=== PATIENT | male | born 1950 | race Caucasian/White ===

== ENCOUNTER → 2017-06-27 | Outpatient (REF) | payer MEDICARE, OTHER ==
[~2017-06-27] MED LIST: /ESCI20TA OR; BUPR15TA OR; BYETTA SC; EYEDRO OU; GABA800T3 OR; GEMF600T OR; HUMUINJ SC; HYDROCODONE/APAP PO; INSULANT SC; LIPI80TA OR; NITR0.4S SL; OMEP20TA7 OR; PLAV75TA2 OR; TOPR100T OR; VICODINES TAB OR; VITAMIN D2 PO; VITAMIN D50000 UNT OR
[2017-06-27 14:10] LABS: PERCENT SATURATION 8.2 % (19.7-50.0)
[2017-06-27 19:46] LABS: FOLATE 8.4 NG/ML (>5.4)
== END ==
LOC: M LAB REF 12:52
PROVIDERS: ATTEND Internal Medicine Nephrology
DX: N18.3 Chronic kidney disease, stage 3 (moderate) (principal); I12.9 Hypertensive chronic kidney disease with stage 1 through stage 4 chronic kidney disease, or unspecified chronic kidney disease; D50.9 Iron deficiency anemia, unspecified

== ENCOUNTER 2017-07-17 08:33 | Outpatient (CLI) | payer MEDICARE, BC, OTHER ==
[~2017-07-17] VITALS: Ht 170.2 cm; Wt 115.9 kg
[2017-07-17] MEDS ORDERED: IRON SUCROSE 25 MG in NS 50 ML IV ONE (09:00)
[2017-07-17] MEDS ORDERED: IRON SUCROSE 475 MG in NS 250 ML IV ONE (10:00)
== END 2017-07-17 14:30 | disposition home or self-care (01) ==
LOC: M INFU 08:33
PROVIDERS: ATTEND Internal Medicine Nephrology
DX: D50.9 Iron deficiency anemia, unspecified (principal)
CPT/HCPCS: 96365; 96366; J1756

== ENCOUNTER → 2017-08-08 | Outpatient (REF) | payer MEDICARE, BC, OTHER ==
[~2017-08-08] MED LIST changes: -/ESCI20TA OR; +/ESCI20TA PO; +ATOR40TA75 PO; +CALC1CAP31 PO; +CHLO125TA; +CHLO25TA PO; +FAMO1TAB11 PO; +FENO1TAB41 PO; +FERR1TAB8 PO; +FLOM5CAP PO; +GABA-282 PO; -GABA800T3 OR; +GABA800T3 PO; +HYDR-3716 PO; -PLAV75TA2 OR; +PLAV75TA2 PO; +PREG100CA PO; +TIMO0.5S29 OU; +TIMOXEOPD OU; +TRAV04OPD OU; +VICT18IN SC; -VITAMIN D50000 UNT OR; +VITAMIN D50000 UNT PO
== END ==
LOC: M LAB REF 08:04
PROVIDERS: ATTEND Internal Medicine Nephrology
DX: E11.22 Type 2 diabetes mellitus with diabetic chronic kidney disease (principal); N18.3 Chronic kidney disease, stage 3 (moderate)

== ENCOUNTER 2017-10-06 09:56 | Inpatient (IN) | payer MEDICARE, BC, OTHER ==
[~2017-10-06] VITALS: Ht 170.2 cm; Wt 121.5 kg
[~2017-10-06 09:56] MED LIST changes: -ATOR40TA75 PO; -CALC1CAP31 PO; -CHLO125TA; -CHLO25TA PO; -FAMO1TAB11 PO; -FENO1TAB41 PO; -FERR1TAB8 PO; -FLOM5CAP PO; -GABA-282 PO; -HYDR-3716 PO; -PREG100CA PO; -TIMO0.5S29 OU; -TIMOXEOPD OU; -TRAV04OPD OU; -VICT18IN SC
[2017-10-06] MEDS ORDERED: FENO1TAB41 PO (10:20)
[2017-10-06] MEDS ORDERED: FLOM5CAP PO (10:20)
[2017-10-06] MEDS ORDERED: PREG100CA PO (10:20)
[2017-10-06] MEDS ORDERED: HYDR-3716 PO (10:20)
[2017-10-06] MEDS ORDERED: CHLO125TA (10:20)
[2017-10-06] MEDS ORDERED: VICT18IN SC (10:20)
[2017-10-06] MEDS ORDERED: FAMO1TAB11 PO (10:20)
[2017-10-06] MEDS ORDERED: FERR1TAB8 PO (10:20)
[2017-10-06] MEDS ORDERED: NS 1,000 ML IV SCH (10:41)
[2017-10-06] MEDS ORDERED: MORPHINE 2 MG/ML 1ML SYRINGE IV PRN (10:45)
[2017-10-06] MEDS ORDERED: ONDANSETRON 4MG/2ML VIAL (J2405) IV ONE (10:45)
[2017-10-06 11:09] LABS: BASO % 0.3 % (0.0-1.0); EOS # 0.2 10^3/uL (0.0-0.50); EOS % 2.5 % (0.0-3.0); IMMATURE GRANULOCYTE % 0.4 % (0-0); LYMPH % 22.3 % (24.0-44.0); MEAN CORPUSCULAR HEMOGLOBIN 26.4 pg (27.0-33.0); MEAN CORPUSCULAR HGB CONC 32.2 g/dl (32.0-36.5); MONO # 0.9 10^3/uL (0.0-0.8); MONO % 10.2 % (0.0-5.0); NEUTROPHILS # 5.7 10^3/uL (1.8-7.7); NEUTROPHILS % 64.3 % (36.0-66.0); PLATELET COUNT, AUTOMATED 221 10^3/uL (150-450); WHITE BLOOD COUNT 8.9 10^3/uL (4.0-10.0)
[2017-10-06 11:27] LABS: INR 0.96
[2017-10-06 11:33] LABS: ALBUMIN 3.7 GM/DL (3.2-5.2); ALBUMIN/GLOBULIN RATIO 0.86 (1.00-1.93); BILIRUBIN,DIRECT 0.2 MG/DL (0.0-0.2); BILIRUBIN,TOTAL 0.6 MG/DL (0.2-1.0); CALCIUM LEVEL 8.9 MG/DL (8.8-10.2); GLOMERULAR FILTRATION RATE 22.4 (>49); POTASSIUM SERUM 4.4 MEQ/L (3.5-5.1)
--- NOTE | 2017-10-06 12:04 | REP ---
CT ABDOMEN PELVIS WITHOUT CONTRAST: 10/06/2017. CLINICAL HISTORY: Left flank pain. TECHNIQUE: Our renal stone protocol was utilized with coronal and sagittal reconstructions. FINDINGS: CT ABDOMEN: Lung bases were clear. Heart is mildly prominent. There are calcifications in the mitral annulus and some coronary artery calcifications. No pericardial thickening or effusion. No hiatal hernia. Gastric stapling is evident. There is no splenomegaly or focal splenic lesion. Elevated right diaphragm is again seen with eventration. No hepatomegaly or focal hepatic lesion. No biliary dilatation. Gallbladder shows a small dependent stone with calcification, almost 5 mm. Pancreas without ductal dilatation, stone, inflammatory change, or mass. Adrenal glands are normal. Right kidney shows no stone, mass, or cyst. There is no hydronephrosis or hydroureter and no ureteral stone. Mild perinephric stranding. The left kidney shows a 4 mm stone, lower pole. There is mild hydronephrosis and hydroureter. There are multiple stones in the left ureter in its abdominal portion. On the coronal images, I see at least four different stones best viewed on image 54 and ranging from 4-6 mm. Below this, the ureter is of normal caliber with no other stones in the mid to distal ureter. No stones in the bladder. A left lower pole kidney cyst noted, exophytic, minor stranding in the fat around both kidneys. Aortic calcified, gomez without aneurysm. No periaortic other retroperitoneal lymphadenopathy. Small bowel loops and colon in the abdomen proper grossly intact. Lung window review shows no perforation or free air in the abdomen or pelvis on any CT slice. Bone windows show lumbar spine with fusion at L3-4 and L4-5 with pedicle screws and arch bars and solid disc fusion, normal lordosis. Remainder of the visualized spine grossly intact, ribs intact. CT PELVIS: Sacrum, pelvis, hips, and symphysis pubis with some mild degenerative changes and a few bone islands, otherwise negative. Bladder was minimal filling, wall thickness difficult to justice court judge, no stone or mass. Seminal vesicles symmetric. Prostate with a few calcifications, not grossly enlarged. Left colon and sigmoid without colitis or diverticulitis, despite diverticulosis. No ventral or inguinal hernia. Some abdominal wall surgical clips on the left over the rectus. IMPRESSION: 1. Hydronephrosis and hydroureter on the left with a series of four stones in the left ureter ranging from 4-6 mm. One stone remains in the left kidney about 4 mm. The left kidney otherwise unremarkable, except for a small lower pole cyst. The right kidney without stone, mass, or hydronephrosis. No other acute finding. Signed by Owen Cobian MD 10/06/2017 05:32 P
[2017-10-06] MEDS ORDERED: cefTRIAXone SOD 1 GM in D5W 50 ML IV ONE (12:30)
[2017-10-06] MEDS ORDERED: TAMSULOSIN 0.4 MG CAP PO ONE (12:30)
[2017-10-06] MEDS ORDERED: ATOR40TA75 PO (13:31)
[2017-10-06] MEDS ORDERED: TRAV04OPD OU (13:31)
[2017-10-06] MEDS ORDERED: TIMOXEOPD OU (13:31)
[2017-10-06] MEDS ORDERED: CALC1CAP31 PO (13:31)
[2017-10-06] MEDS ORDERED: CHLO25TA PO (13:31)
[2017-10-06] MEDS ORDERED: TIMO0.5S29 OU (13:32)
[2017-10-06] MEDS ORDERED: ACETAMINOPHEN TAB 650MG DOSE (2X325MG) PO PRN (14:30)
[2017-10-06] MEDS ORDERED: ONDANSETRON 4MG/2ML VIAL (J2405) IV PRN ×2 (14:30→19:30)
--- NOTE | 2017-10-06 14:42 | REP ---
Chest two views HISTORY: Preop Comparison: 05/07/2016 There is elevation of the right hemidiaphragm. The lungs are clear. The heart is normal in size. The pulmonary vasculature is normal in appearance. The bony structure is intact. IMPRESSION: No acute disease. Signed by Ady Ríos MD 10/06/2017 02:34 P
[2017-10-06 15:45] VITALS: BP 148/82
--- NOTE | 2017-10-06 16:02 | REP ---
RIGHT UPPER QUADRANT ULTRASOUND: 10/06/2017. Comparison: CT abdomen today, gallbladder ultrasound 10/05/2015. Clinical history: Pancreatitis. CT today did not show any significant inflammatory changes. There is no stone, pseudocyst, adenopathy or mass about the pancreas. There was a as a small calcified gallstone about [address] Findings: Sonographic evaluation shows homogeneous echotexture throughout the liver without focal hepatic mass or intrahepatic biliary dilatation. Gallbladder does not definitely display of the plaque-like echogenic focus seen on CT. May be partially obscured by gas shadowing. The gallbladder wall is normal thickness of 2.4 mm . Distension is adequate up to 9.6 cm with AP diameter 3.3 cm. No pericholecystic fluid. No sonographic Hoffman sign. Common duct 5.9 mm without a filling defect. Visualized pancreas shows no definite mass or stone. There are no fluid collections adjacent to the pancreas or within it. No ductal dilatation in the pancreas. The right kidney is 12.1 x 5.7 x 5.3 cm without hydronephrosis or stone. Impression: 1. Liver homogeneous without focal hepatic mass or hepatomegaly. 2. No ascites. The gallbladder up to 9.6 x 3.3 cm diameter. The hyperdense plaque - like focus on the gallbladder wall suggesting possible calcified stone on the CT is not visible by ultrasound. 3. Common duct 5.9 mm without a filling defect. No dilatation. The limited view of the pancreas shows the pancreatic head unremarkable. 4. Right kidney without hydronephrosis, stone or mass. Signed by Owen Cobian MD 10/06/2017 05:51 P
[2017-10-06] MEDS ORDERED: GLUCAGON FOR INJ 1 MG VIAL (J1610) SC PRN (16:45)
[2017-10-06] MEDS ORDERED: DEXTROSE 50% 50 ML SYRINGE IV PRN (16:45)
[2017-10-06] MEDS ORDERED: GLUCOSE 4 GM CHEW TABLET PO PRN (16:45)
[2017-10-06] MEDS ORDERED: CONRAY-60 60% 50ML VIAL (Q9961) As Ordered ONE (16:46)
[2017-10-06] MEDS ORDERED: LIDOCAINE 2% 5ML JELLY UROJET As Ordered ONE (16:48)
[2017-10-06] MEDS ORDERED: LIDOCAINE 2% MDV 20 ML VIAL As Ordered ONE (16:48)
[2017-10-06] MEDS ORDERED: ceFAZolin 1GM INJ (J0690) As Ordered ONE (17:01)
[2017-10-06] MEDS ORDERED: ceFAZolin 1GM INJ (J0690) IV ONE (17:09)
--- NOTE | 2017-10-06 17:18 | HPE ---
DATE OF ADMISSION: 10/06/2017 PRIMARY CARE PROVIDER: Lorenzo Brown MD PLASMA CUTTING MACHINE OPERATOR: Lucero Pickens MD DATA ENTRY ANALYST: Nima Gomez MD PHOTOENGRAVING PROOFER APPRENTICE: Akash Brewer MD UROLOGIST: Dr. Wright in [place], [place] CHIEF COMPLAINT: Pain in my gut. SUMMARY OF PRESENTATION: The patient developed pain in his left flank October 01, . It radiates from the left flank right under his ribcage to around the front. Somewhat worse when he is lying on his right side. He has not had any dysuria, but he had chills last evening. He has had nausea without vomiting. No diarrhea. He has not been eating and drinking much, but he does not associate this with food. He did think he was constipated. He used suppositories with no impact. He has had no change in his urinary output, although he has had a 16 pounds weight gain in [address] Pickens's office to be seen today and was sent to the emergency department as his creatinine has increased from his baseline around 1.6 to now 3. He had a scan done which showed obstructing stone on the left and urology was consulted and I was called for admission. PAST SURGICAL HISTORY: Notable for: Low back laminectomy and fusion. Discectomy in the cervical spine. He had a Melanie-en-Y bypass in 2012. At that time also he had a ureteral stent placed. He was septic with stones apparently. That was done in [place] in [place]. He has a history of a myocardial infarction, coronary artery disease, status post PCI times three with 8 stents. He did have a stress test this year that we do not have access to. PAST MEDICAL HISTORY: Diabetes. Obstructive sleep apnea, on CPAP for which he is compliant. Hypertension. History of coronary artery disease. 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 Status post back surgery previously completed. SOCIAL HISTORY: He quit smoking in 1998 or 1999. He does not drink any alcohol in recent memory. He lives in [facility]. He has a corvette. He likes working on cars. FAMILY HISTORY: Not pertinent in this setting. REVIEW OF SYSTEMS: Notable for chills with no fever. No headache. No visual changes. No runny nose, no sore throat, no cough. No shortness of breath. He does not complain of orthopnea or paroxysmal nocturnal dyspnea. He does intermittently suffer from lower extremity edema which is worse at night. Otherwise, is unremarkable. ALLERGIES: LOSARTAN. MEDICATIONS AT HOME: Include: - [place] - atorvastatin - calcitriol - chlorthalidone - Plavix - famotidine - ferrous sulfate - sublingual nitroglycerin which he has not used recently - Lyrica - Flomax - timolol - Travatan Z - Lexapro - fenofibrate - Neurontin - insulin - Victoza - vitamin D PHYSICAL EXAMINATION: Temperature is 97.4, pulse 55, respiratory rate 16, blood pressure 184/86, 97% on room air. Intake and output (I and Os) not in the computer at this point. Body mass index was 40.8. He is awake, appropriately interactive. Pleasantly conversant. Head is normocephalic. Pupils equal, round and reactive. Anicteric. Noninjected. Nasal septum is midline. He has poor dentition. Mucous membranes moist. Neck is supple. Thick. Short. Breathing is symmetrical, rested. I to E ratio is 1 to 3. No wheezes, rales or rhonchi. No accessory muscle use. Speaking in complete sentences. There is no costovertebral angle (CVA) tenderness. There is no sacral edema. Abdomen is soft, doughy, nontender. There is left upper quadrant tenderness quite laterally. No rebound or guarding. Active bowel sounds. There is no lower extremity edema. Feet are exposed. There are some excoriations on his feet. There is a healing, but is improving apparently on his left 5th toe. Cranial nerves II-XII are grossly intact. He has normal mood and affect. He does have left-sided foot drop. White cell count is 8.9, hemoglobin is 13.8, platelets are 221. BUN 25, creatinine 3. Sodium is 135. Lactic acid is 0.5, alkaline phosphatase 128, lipase is 1128. Baseline creatinine appears to be between 1.3 and 1.5. UA is notable for too numerous to count red cells. 26 whites. 1+ glucose. 3+ blood. Urine culture is pending. Abdominal and pelvis CT shows hydronephrosis and hydroureter on the left side with a series of four stones in the left ureter ranging from 4 to 6 mm. One stone remains in the left kidney, about 4 mm. The left kidney otherwise unremarkable except for small lower pole cyst. Right kidney without stone, mass or hydronephrosis. No other acute finding. Chest x-ray is pending. EKG shows sinus bradycardia with a rate of 56. ASSESSMENT: This is a 67-year-old with acute renal failure in the setting of left-sided hydronephrosis and obstructing stone. The patient required 2 midnight hospital stay and surgical correction. PLAN: 1. Genitourinary (): The patient has hydronephrosis on the left with obstructing stones. Dr. Pham will be consulted. Likely the patient will require stent placement, which I will defer to her management. Will also consult Dr. Pickens who sent the patient to the hospital for evaluation. The patient has acute renal failure and is started on IV fluid and empiric antibiotics. 2. The patient has morbid obesity which complicates care. 3. The patient has coronary artery disease. Has had a recent stress test. I have asked for old records from Dr. Gomez's office. He has relatively poor exercise tolerance. He does not describe angina or equivalent but he does not need relatively urgent intervention and this represents a relatively low risk procedure. Withhold Plavix. 4. The patient has obstructive sleep apnea. Will be placed in the PCU for close monitoring perioperatively. His home CPAP device will be brought in. 5. The patient has diabetes. He will be placed on a sliding scale. 6. The patient has diabetic neuropathy. Continue his Neurontin and Lyrica. He appears to be on both. 7. This patient will be signed out to Dr. Yeh.
[2017-10-06] MEDS ORDERED: MIDAZOLAM INJ 2 MG/2 ML VIAL (J2250) As Ordered ONE (17:28)
[2017-10-06] MEDS ORDERED: fentaNYL 100 MCG/2 ML INJECTION (J3010) As Ordered ONE ×2 (17:28→17:39)
[2017-10-06] MEDS ORDERED: ePHEDrine SULFATE 25 MG/5 ML(5MG/ML) SYRINGE As Ordered ONE ×2 (17:28→17:43)
[2017-10-06] MEDS ORDERED: SUCCINYLCHOLINE 100 MG/5 ML SYRINGE (J0330) As Ordered ONE (17:28)
[2017-10-06] MEDS ORDERED: ROCURONIUM BROMIDE 50 MG/5 ML VIAL/SYRINGE As Ordered ONE (17:28)
[2017-10-06] MEDS ORDERED: ETOMIDATE INJ 20MG/10ML VIAL As Ordered ONE (17:29)
[2017-10-06] MEDS ORDERED: PROPOFOL 200 MG/20 ML VIAL As Ordered ONE (17:29)
[2017-10-06] MEDS ORDERED: LIDOCAINE 2% INJ 100 MG/5 ML SDV (FOR ANES.) As Ordered ONE (17:29)
[2017-10-06] MEDS ORDERED: ONDANSETRON 4MG/2ML VIAL (J2405) As Ordered ONE (17:38)
[2017-10-06] MEDS ORDERED: METOCLOPRAMIDE INJ 10MG/2ML VIAL (J2765) As Ordered ONE (17:38)
[2017-10-06] MEDS ORDERED: HumaLOG INSULIN (NovoLOG) PER UNIT SC SCH ×2 (18:00→21:00)
[2017-10-06] MEDS: NS 1,000 ML IV SCH (18:00)
[2017-10-06] MEDS ORDERED: GLYCOPYRROLATE INJ 0.2 MG/ML 2 ML VIAL As Ordered ONE (18:21)
--- NOTE | 2017-10-06 18:59 | REP ---
RETROGRADE PYELOGRAM, TWO VIEWS: HISTORY: Stent placement. Two portable radiographs were obtained with a C-ARM. The patient is status-post left ureteral stent placement. A small amount of contrast material is present in the left renal collecting system and ureter. Fluoroscopic time: 7 seconds. IMPRESSION:The patient is status-post left ureteral stent placement. Signed by Ady Ríos MD 10/06/2017 07:11 P
[2017-10-06] MEDS ORDERED: PERCOCET 5MG/325MG TAB PO PRN (19:30)
[2017-10-06] MEDS ORDERED: fentaNYL 100 MCG/2 ML INJECTION (J3010) IV PRN (19:30)
[2017-10-06] MEDS ORDERED: METOCLOPRAMIDE INJ 10MG/2ML VIAL (J2765) IV PRN (19:30)
[2017-10-06] MEDS ORDERED: LR 1,000 ML IV SCH (19:30)
[2017-10-06 20:00] VITALS: BP 170/70
[2017-10-06] MEDS: TAMSULOSIN 0.4 MG CAP PO SCH (20:26)
[2017-10-06] MEDS: LATANOPROST 0.005% OPHTH SOLN 2.5 ML OU SCH (20:26)
[2017-10-06] MEDS: GABAPENTIN 400 MG CAP PO SCH (20:26)
[2017-10-06] MEDS: PREGABALIN 100 MG CAP (LYRICA) PO SCH (20:27)
[2017-10-06] MEDS: FAMOTIDINE 20 MG TAB PO SCH (20:27)
[2017-10-06 20:30] VITALS: BP 160/80
[2017-10-06] MEDS: MORPHINE 2 MG/ML 1ML SYRINGE IV PRN (20:43)
[2017-10-06 21:00] VITALS: BP 158/78
[2017-10-06 23:59] VITALS: BP 142/76
[2017-10-07] MEDS ORDERED: cefTRIAXone SOD 1 GM in D5W 50 ML IV SCH (00:30)
[2017-10-07 04:45] VITALS: BP 132/59
[2017-10-07] MEDS: HumaLOG INSULIN (NovoLOG) PER UNIT SC SCH ×3 (06:00→17:25)
--- NOTE | 2017-10-07 07:15 | ECGEPIP ---
Stationary ECG Study [facility] - ED Test Date: 2017-10-06 Pat Name: GARRICK MCRAE Department: Room: - Gender: M Celluloid Trimmer: ALLIE : 1950 Requested By: LUCÍA WALLS Order Number: [id number] Reading MD: Parker العلي Measurements Intervals [place] Rate: 56 P: 30 MA: 138 QRS: 49 QRSD: 88 T: 29 QT: 418 QTc: 405 Interpretive Statements SINUS BRADYCARDIA SIMILAR TO 05/07/16 Electronically Signed On 10-07-2017 7:15:06 EST by Parker العلي
[2017-10-07] MEDS ORDERED: HumaLOG INSULIN (NovoLOG) PER UNIT SC SCH ×2 (07:30→21:00)
[2017-10-07 08:00] VITALS: BP 118/61
[2017-10-07 08:30] LABS: MEAN CORPUSCULAR HGB CONC 31.5 g/dl (32.0-36.5); MEAN CORPUSCULAR VOLUME 82.6 fl (80.0-96.0); PLATELET COUNT, AUTOMATED 206 10^3/uL (150-450); WHITE BLOOD COUNT 7.1 10^3/uL (4.0-10.0)
[2017-10-07 08:58] LABS: MAGNESIUM LEVEL 1.8 MG/DL (1.8-2.4)
[2017-10-07] MEDS: ESCITALOPRAM OXALATE 10 MG TAB (LEXAPRO) PO SCH (09:36)
[2017-10-07] MEDS: ATORVASTATIN 20 MG TAB PO SCH (09:36)
[2017-10-07] MEDS: FAMOTIDINE 20 MG TAB PO SCH ×2 (09:36→20:31)
[2017-10-07] MEDS: NS 1,000 ML IV SCH ×2 (09:36→18:37)
[2017-10-07] MEDS: GABAPENTIN 400 MG CAP PO SCH (09:36)
[2017-10-07] MEDS: PREGABALIN 100 MG CAP (LYRICA) PO SCH ×2 (09:36→20:30)
[2017-10-07] MEDS: LATANOPROST 0.005% OPHTH SOLN 2.5 ML OU SCH (09:37)
[2017-10-07] MEDS: MORPHINE 2 MG/ML 1ML SYRINGE IV PRN ×2 (09:38→17:26)
[2017-10-07] MEDS: FERROUS SULFATE 325MG TAB PO SCH (09:40)
[2017-10-07] MEDS: TIMOLOL MALEATE 0.5% OPHTH SOLN 5 ML OU SCH (09:40)
[2017-10-07 11:54] LABS: ALBUMIN 3.1 GM/DL (3.2-5.2); ALBUMIN/GLOBULIN RATIO 0.94 (1.00-1.93); BILIRUBIN,TOTAL 0.4 MG/DL (0.2-1.0); CREATININE FOR GFR 2.85 MG/DL (0.70-1.30); GLOMERULAR FILTRATION RATE 23.8 (>49); POTASSIUM SERUM 4.8 MEQ/L (3.5-5.1); TOTAL PROTEIN 6.4 GM/DL (6.4-8.2)
[2017-10-07 12:00] VITALS: BP 134/60
[2017-10-07] MEDS: cefTRIAXone SOD 1 GM in D5W 50 ML IV SCH (13:29)
[2017-10-07] MEDS ORDERED: TETANUS/DIPHTHERIA TOX ADSORB ADULT 0.5ML SYR/VIAL (90714) IM ONE (14:15)
--- NOTE | 2017-10-07 15:05 | IPN ---
DATE: 10/07/2017 SUBJECTIVE: The patient is seen and examined in the room today. The patient was brought to the operating room (OR) by urology, Dr. Pham, for stone removal. The patient tolerated the procedure well. The patient denies any acute complaints. OBJECTIVE: VITAL SIGNS: Temperature is 98, pulse 71, respirations 17, blood pressure 118/61. Pulse oximetry is 92% on room air. GENERAL: Morbidly obese. In mild distress secondary to soreness in the suprapubic region and the left lateral abdomen. Alert and oriented times three. HEENT: Normocephalic, atraumatic. Extraocular motor grossly intact. CARDIOVASCULAR: Positive S1, S2. Regular rate. LUNGS: Decreased breath sounds but clear to auscultation bilaterally. ABDOMEN: There is some tenderness to palpation in the suprapubic region with radiation to the left lateral abdomen, achy type of pain. Bowel sounds present. No rebound. EXTREMITIES: No edema, no cyanosis. LABORATORY DATA: WBC is 7.1, hemoglobin 12.1, hematocrit 38.4, platelet count 206. Sodium 138, potassium 4.8, chloride 105, carbon dioxide 26, BUN 25, creatinine 2.85, GFR 23.8. Fasting glucose is 226. Calcium is eight. Magnesium 1.8, total bilirubin 0.4, AST 19, ALT 23, alkaline phosphatase 106. Total protein is 6.4, albumin 3.1, lipase 108. ASSESSMENT AND PLAN: 1. Left hydronephrosis from obstructing stone. The patient was brought to the OR for stone removal by Dr. Pham yesterday. The patient tolerated the procedure well. Currently the patient is on empiric antibiotics (Rocephin). 2. Acute on chronic renal failure possibly due to stone obstruction. The patient had a stone removal procedure performed and will followup with renal function. Currently the patient is not on intravenous (IV) fluid. 3. Diabetes. The patient will be on consistent carbohydrate diet and sliding scale. 4. Obstructive sleep apnea (EDDY) on continuous positive airway pressure (CPAP). 5. Hypertension. Currently blood pressure is in the satisfactory range. 6. History of coronary artery disease. Continue Lipitor. 7. Plavix has been on hold in preparation for the procedure. 8. History of diabetic neuropathy, on gabapentin. 9. History of puncture wound from nail. Will give the patient a tetanus shot. 10. DVT prophylaxis on thromboembolism deterrent stockings (TEDs) and sequential compression devices.
--- NOTE | 2017-10-07 15:31 | CR ---
DATE OF CONSULTATION: 10/06/2017 REASON FOR CONSULTATION: Left ureteral calculi. HISTORY OF PRESENT ILLNESS: The patient is a 67-year-old gentleman with a several-day history of left flank pain radiating to the groin. 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 He was sent to the emergency room and a urologic consultation was requested. The patient has had some gross hematuria, nausea and chills. He has a history of kidney stones in the past and [place] last stent was in 2012, and he has passed several stones. He also has a history of benign prostatic hypertrophy (BPH) and is on two tamsulosin nightly, but still has urinary frequency and nocturia every two hours. He has a normal stream and normally feels like he empties his bladder completely. He denies any burning with urination or any problems with recurrent urinary tract infections. PAST MEDICAL HISTORY: Is significant for coronary artery disease, high blood pressure, BPH, chronic back pain and neurologic pain with a dropped leg, chronic kidney disease, also diabetes, morbid obesity, sleep apnea and venous insufficiency. PAST SURGICAL HISTORY: Multiple back surgeries, coronary artery stent placement times eight, urologic surgery with stent placement. MEDICATIONS: Gabapentin, vitamin D, fenofibrate, Flomax, Lyrica, Victoza, ferrous sulfate, hydrocodone, famotidine, atorvastatin, chlorthalidone, calcitriol, Travatan, and timolol eye drops. ALLERGIES: LOSARTAN caused skin peeling on his hands, and METFORMIN. FAMILY HISTORY: Noncontributory. SOCIAL HISTORY: He is a former smoker. He is . REVIEW OF SYSTEMS: The full emergency room (ER) review was done along with the patient. He has had no recent chest pain, but he does have a history of chest pain and a heart attack, and he had a stress test this last year which was reportedly normal. Besides his chronic problems, especially with back pain and a left foot drop with left leg numbness and tingling at times, his review of systems is otherwise negative. PHYSICAL EXAMINATION: GENERAL: This is a well-developed, well-nourished gentleman lying in a hospital bed in no apparent respiratory distress. He is alert and oriented times three. VITAL SIGNS: He is afebrile. His pulse is 58. His blood pressure is 160/72 and his respiratory rate is 16. HEENT: His head is normocephalic, atraumatic. His eyes are pupils equal, round, and reactive to light and extraocular muscles intact. NECK: His neck is supple. CARDIOPULMONARY: His heart has a regular rate and rhythm now and his lungs are clear to auscultation and percussion. He does have left costovertebral angle tenderness. ABDOMEN: His abdomen is soft with some mild left lower quadrant tenderness but without any rebound or guarding. EXTREMITIES: His extremities show no cyanosis, clubbing or edema. IMAGING: A CT scan of the abdomen and pelvis shows four stones in the left ureter with the largest measuring 8 mm and then a 3-4 mm nonobstructing stone up in the left kidney. There is no right nephrolithiasis. DISCUSSION: I discussed these findings at length with the patient today and it was decided to bring him emergently to the operating room for cystoscopy, left ureteroscopy, and stent placement. He is on Plavix, and because of all the stones on the left side, we may not be able to remove them all today. He understands that we may just be placing a stent. We discussed the major risks of the procedure which included but was not limited to the risks of general anesthesia, reactions to medication, bleeding, infection, and inability to remove all the stones. He understands that the stent will need to be removed and he has had this done in the past. IMPRESSION: 1. Four left ureteral stones causing obstruction with the largest measuring up to 8 mm, also with a nonobstructing 4 mm stone. 2. Multiple other medical problems. PLAN: The patient to go the operating room emergently now for cystoscopy, left ureteroscopy and left stent placement.
[2017-10-07 16:00] VITALS: BP 130/61
--- NOTE | 2017-10-07 20:07 | IPN ---
DATE: 10/07/2017 SUBJECTIVE: The patient is lying comfortably in a hospital bed. He does have some left lower quadrant tenderness and some discomfort with urination but all-in-all is feeling quite well after a ureteroscopy, laser lithotripsy, and stent placement yesterday. OBJECTIVE: He is afebrile. His temperature maximum (T-max) is 98. His blood pressure is 118/61 and his pulse is 71. His abdomen is soft with some mild left lower quadrant tenderness but without any rebound or guarding. His extremities show no cyanosis, clubbing or edema. LABORATORY DATA: His chemistry is still pending today after his creatinine was 3.0 yesterday. His hemoglobin and hematocrit this morning are 12.1 over 38.4, and his white blood count is 7.1. IMPRESSION: 1. Postoperative day one status post left ureteroscopy and laser lithotripsy with stone basketing for multiple ureteral stones, now with left ureteral stent. 2. Concern for pancreatitis since his lipase was quite elevated yesterday, but today is down to 108 but he is nothing by mouth and being cared for by the medical service. PLAN: Urine culture is negative so there is no reason for proper antibiotics at this point and the patient will followup in our office in approximately 10 days for cystoscopy and stent removal to continue his two tablets of Flomax for his history of benign prostatic hypertrophy (BPH), and the patient to followup with Dr. Saunders who is his urologist in the future to discuss further stone prevention.
[2017-10-07 20:15] VITALS: BP 143/72
[2017-10-07] MEDS: TAMSULOSIN 0.4 MG CAP PO SCH (20:30)
[2017-10-07] MEDS: GABAPENTIN 300 MG CAP PO SCH (20:30)
[2017-10-08 00:06] VITALS: BP 138/62
[2017-10-08] MEDS: MORPHINE 2 MG/ML 1ML SYRINGE IV PRN ×3 (03:49→12:58)
[2017-10-08 04:00] VITALS: BP 157/73
[2017-10-08 05:20] LABS: MEAN CORPUSCULAR HEMOGLOBIN 26.8 pg (27.0-33.0); MEAN CORPUSCULAR HGB CONC 32.2 g/dl (32.0-36.5); MEAN CORPUSCULAR VOLUME 83.3 fl (80.0-96.0); PLATELET COUNT, AUTOMATED 195 10^3/uL (150-450); RED CELL DISTRIBUTION WIDTH 18.5 % (11.5-14.5); WHITE BLOOD COUNT 5.7 10^3/uL (4.0-10.0)
[2017-10-08 05:28] LABS: ALBUMIN/GLOBULIN RATIO 0.81 (1.00-1.93); BILIRUBIN,TOTAL 0.3 MG/DL (0.2-1.0); CALCIUM LEVEL 8.1 MG/DL (8.8-10.2); CREATININE FOR GFR 2.33 MG/DL (0.70-1.30); MAGNESIUM LEVEL 1.9 MG/DL (1.8-2.4); POTASSIUM SERUM 4.7 MEQ/L (3.5-5.1); TOTAL PROTEIN 6.7 GM/DL (6.4-8.2)
[2017-10-08] MEDS: NS 1,000 ML IV SCH (07:00)
[2017-10-08 08:00] VITALS: BP 137/67
[2017-10-08] MEDS: HumaLOG INSULIN (NovoLOG) PER UNIT SC SCH ×2 (08:17→12:47)
[2017-10-08] MEDS: GABAPENTIN 300 MG CAP PO SCH (08:18)
[2017-10-08] MEDS: PREGABALIN 100 MG CAP (LYRICA) PO SCH (08:18)
[2017-10-08] MEDS: ESCITALOPRAM OXALATE 10 MG TAB (LEXAPRO) PO SCH (08:18)
[2017-10-08] MEDS: ATORVASTATIN 20 MG TAB PO SCH (08:18)
[2017-10-08] MEDS: FERROUS SULFATE 325MG TAB PO SCH (08:19)
[2017-10-08] MEDS: TIMOLOL MALEATE 0.5% OPHTH SOLN 5 ML OU SCH (08:19)
[2017-10-08] MEDS: FAMOTIDINE 20 MG TAB PO SCH (08:19)
[2017-10-08] MEDS ORDERED: INFLUENZA VIRUS VACCINE HIGH DOSE 0.5 ML SYRINGE (90662) IM ONE (09:00)
--- NOTE | 2017-10-08 10:22 | RO ---
DATE OF PROCEDURE: 10/06/2017 PREOPERATIVE DIAGNOSIS: Four distinct left ureteral calculi causing obstruction with the largest measuring 8 mm. POSTOPERATIVE DIAGNOSIS: Four distinct left ureteral calculi causing obstruction with the largest measuring 8 mm. PROCEDURE: Cystoscopy, left ureteroscopy, left laser lithotripsy, left stone basketing and placement of a #6-[place] double-J ureteral stent. SURGEON: Dr. Adrienne Pham ANESTHESIA: General. MEDICATIONS: Ancef 2 grams preoperatively. DRAINS: #6-[place] double-J ureteral stent. INDICATIONS FOR PROCEDURE: The patient is a 67-year-old gentleman who came through the emergency room with a several day history of severe left flank pain. A CT scan was done, which showed four distinct left ureteral stones causing obstruction with the largest stone measuring 8 mm. He also had a nonobstructing 4 mm stone up in the left kidney. The right kidney was clear of stones. After discussing all different options, alternatives, risks, and benefits it was decided to bring the patient to the operating room for definitive surgical management. Informed consent was obtained in both verbal and written form. DESCRIPTION OF PROCEDURE: The patient was brought into the operating room. 2 grams of Ancef had been given preoperatively, and he had sequential compression devices in place. General anesthesia was then induced. The patient was then placed in the lithotomy position and careful attention was paid that his pressure points were well padded and protected. He was prepped and draped in the usual fashion. Next, a #21-[place] cystoscope was inserted. The urethra was noted to be open without any evidence of lesions or strictures. The prostatic urethra was about 2-1/2 cm in length with some mild to moderate bilateral hypertrophy but an elevated bladder neck. Upon entering the bladder, both ureteral orifices were seen. There was no evidence of stones, erythematous patches, lesions or other abnormalities within the bladder. At this point, a 0.035 guidewire was placed up the left ureteral orifice into the left kidney under fluoroscopic guidance. This was then left as a safety wire. Next a rigid ureteroscope was passed and the distal ureter was very inflamed but once I was able to pass this, I was able to see the stones. At this point, a laser fiber was passed, and I spent quite a lot of time blasting the stones individually to make them the smallest size possible. At this point, I then placed a Helical wire basket and removed the stone fragments. At the end of the procedure, I was able to pass the ureteroscope all the way up to the ureteropelvic junction and no significant stone fragments were seen. At this point, a #6-[place] double-J ureteral stent was placed and this had an excellent curl up in the left renal pelvis and in the bladder. The patient's bladder was emptied and he was returned to the recovery room in stable condition.
[2017-10-08 11:41] LABS: BILIRUBIN,DIRECT 0.2 MG/DL (0.0-0.2); BILIRUBIN,TOTAL 0.4 MG/DL (0.2-1.0); CALCIUM LEVEL 8.1 MG/DL (8.8-10.2); CREATININE FOR GFR 2.2 MG/DL (0.70-1.30); POTASSIUM SERUM 4.9 MEQ/L (3.5-5.1)
[2017-10-08 12:00] VITALS: BP 133/65
[2017-10-08] MEDS ORDERED: GABA-282 PO (12:18)
[2017-10-08] MEDS: cefTRIAXone SOD 1 GM in D5W 50 ML IV SCH (12:47)
--- NOTE | 2017-10-08 15:19 | DSES ---
DATE OF ADMISSION: 10/06/2017 DATE OF DISCHARGE: CONSULTANTS: Urologist, Dr. Pham. PROCEDURES: Cystoscopy, left ureteroscopy, left laser lithotripsy, left stone basketing and placement of double-J ureteral stent. COMPLICATIONS: None. DISCHARGE DIAGNOSES: 1. Left hydronephrosis from obstructing stone. 2. Acute on chronic renal failure secondary to ureteral stone obstruction. 3. Diabetes. 4. Hypertension. 5. History of coronary artery disease, status post stent placement. 6. Diabetic neuropathy. 7. Puncture wound from a nail. 8. Obstructive sleep apnea. 9. Elevated lipase, improving. HOSPITALIZATION COURSE: The patient is a 67-year-old male who presented to [facility] on 10/06/2017 with a left flank pain. Imaging studies were performed. The patient was found to have left hydronephrosis and hydroureter with a series of four stones in the left ureter. Urologist, Dr. Pham, was consulted, and the patient was brought to the operating room for the stone removal and stent placement. With the obstructing stone removal, the patient's renal function continued to improve. On 10/08/2017, discussed the case with the patient's senior systems architect. The patient is determined stable for discharge with recommendations to followup with urologist in 10 days and followup with senior systems architect in 7 days. The patient should also followup with primary care provider at the scheduled time. VITAL SIGNS: On the day of discharge: Temperature 97.3, pulse 56, respirations 17, blood pressure is 133/65, pulse oximetry is 94% on room air. LABORATORY DATA: On the day of discharge: WBC 5.7, hemoglobin 11.9, hematocrit 37, platelet count is 195. Sodium 140, potassium 4.9, chloride 108, carbon dioxide 30, BUN 24, creatinine 2.2, GFR is 32, fasting glucose 219, calcium is 8.1, total bilirubin is 0.4, direct bilirubin is 0.2, AST 17, ALT 18, alkaline phosphatase 94, total protein 6, albumin 3, triglycerides 129, total cholesterol is 81, LDL 21.2, lipase is 464. Urine culture collected on 10/06/2017 is negative. IMAGING STUDIES: CT of the abdomen and pelvis without contrast on 10/06/2017 showed hydronephrosis and hydroureter on the left with series of four stones in the left ureter ranging from 4 to 6 mm. One stone remains in the left kidney, about 4 mm. Chest x-ray on 10/06/2017 showed no acute disease. Liver ultrasound on 10/06/2017 showed liver homogeneous without focal hepatic lesion or hepatomegaly. No ascites. Common bile duct without filling defect, no dilatation. DISCHARGE MEDICATIONS: - gabapentin 300 mg by mouth twice a day - hydrocodone/acetaminophen 7.5/325 one tablet by mouth four times a day as needed - atorvastatin 40 mg by mouth daily - calcitriol 0.5 mcg by mouth three times a week - Plavix 75 mg by mouth daily - Lexapro 20 mg by mouth daily - famotidine 20 mg by mouth twice a day - fenofibrate 40 mg by mouth daily - ferrous sulfate 325 mg by mouth daily - Lantus 70 units subcutaneously in the morning - Victoza 1.2 mg subcutaneously daily - nitroglycerin 0.4 mg sublingual every 5 minutes as needed - Lyrica 100 mg by mouth twice a day - Flomax 0.8 mg by mouth at night - vitamin D 50,000 units by mouth weekly DISCHARGE INSTRUCTIONS: Discontinue line. Discharge home. Activity as tolerated. Low fat and low salt diet and consistent carbohydrate diet as tolerated. The patient should followup with they urologist in 10 days. The patient should follow with senior systems architect within 1 week. The patient should followup with primary care provider in 1 to 2 weeks. Discharge condition: Stable. Discharge time: Greater than 30 minutes.
[2017-10-08 16:00] VITALS: BP 159/75
--- NOTE | 2017-10-08 16:34 | CR ---
DATE OF CONSULTATION: 10/07/2017 REQUESTING PHYSICIAN: Dr. Amanda Yeh REASON FOR CONSULTATION: Acute kidney injury in the setting of left ureteral calculi with obstruction. CHIEF COMPLAINT: Five day history of left flank pain, nausea, and malaise. HISTORY OF PRESENT ILLNESS: Mr. Calrk is a 67-year-old male, well known to me, with a past medical history of hypertension for the past 20 years, history of type 2 diabetes diagnosed in 1999 with known diabetic retinopathy, not on nfztcwdhfnv-tbjnibbdpl-peindq (RINKU) inhibitor or ARB due to prior allergic reaction to Cozaar. History of coronary artery disease with myocardial infarction and status post PCI. History of sciatica, diabetic neuropathy, benign prostatic hypertrophy (BPH), and Melanie-en-Y gastric bypass in 2012 with frequent episodes of nephrolithiasis. The patient was seen in the office yesterday and he had a complaint of 5 days of left flank pain, decreased urination, nausea, fatigue, and chills. He was sent to the emergency room for suspected obstruction for suspected nephrolithiasis causing obstruction. CT scan revealed four stones in the left ureter causing hydroureteronephrosis. He was seen by Dr. Pham, and had a left ureteral stent placed. The patient was initially kept nothing by mouth overnight due to concern of elevated lipase. PAST MEDICAL HISTORY: 1. Coronary artery disease. 2. History of myocardial infarction, status post PCI. Last myocardial infarction in 2009. 3. History of diabetic neuropathy. 4. Sciatica. 5. Insulin-dependent diabetes. 6. Long-standing hypertension. 7. Dyslipidemia. 8. Benign prostatic hypertrophy (BPH). 9. Gastric bypass. 10. History of nephrolithiasis. 11. Obesity. 12. Chronic kidney disease with baseline creatinine of about 1.5. PAST SURGICAL HISTORY: Multiple back surgeries, eight coronary artery stents, gastric bypass, ureteral stent. FAMILY HISTORY: Heart disease, hypertension, diabetes. ALLERGIES: Losartan. SOCIAL HISTORY: He is an ex smoker. No alcohol. No drugs. HOME MEDICATIONS: - chlorthalidone - calcitriol 0.25 mcg five days a week - ferrous sulfate 325 mg by mouth daily - Ventolin inhaler - Pepcid 20 mg by mouth daily - Lipitor 40 mg at night - fenofibrate 40 mg - vitamin D 50,000 units weekly - Lantus - Plavix 75 mg daily - gabapentin 800 mg by mouth twice a day - Flomax 0.4 mg daily - Lyrica 100 mg twice a day - escitalopram 20 mg daily REVIEW OF SYSTEMS: Five day history of fatigue, chills, left flank pain that radiates to the groin, decreased urination, generalized malaise. Review of systems is negative for chest pain, palpitations, shortness of breath, edema, vomiting, diarrhea. The remainder of review of systems is negative. PHYSICAL EXAMINATION: VITAL SIGNS: Temperature 97.5, pulse 69, respiratory rate 17, blood pressure 134/60, saturating 91 to 94% on room air. Intake and output: Urine output today is 2720 mL. GENERAL: The patient is seen at the bedside in no acute distress. Complaining of thirst. Oriented times three. HEAD/NECK: Ears, nose, throat unremarkable. Extraocular muscles are intact. Mucous membranes are moist. The neck is supple. There is no jugular venous distention (JVD). CARDIOVASCULAR: S1, S2. 2+ radial pulse. Regular rate. No significant edema in the peripheries or dependent area. LUNGS: Decreased breath sounds at the bases. Otherwise, clear and symmetric air entry. Comfortable on room air. ABDOMEN: Soft, obese, distended. Nontender. Left flank pain ongoing. Bowel sounds are present. EXTREMITIES: No edema. NEUROLOGIC: No focal deficits. PSYCHIATRIC: Appropriate mood and affect. LABORATORY DATA: White count 7.1, hemoglobin 12, platelets 206. Sodium 138, potassium 4.8, bicarbonate 26, BUN 25, creatinine 2.8, corrected calcium 8.7, magnesium 1.8, lipase 1100, down to 108. Urine culture with no growth. IMAGING: CT scan on 10/06/2017 showed hydronephrosis and hydroureter on the left with a series of four stones in the left ureter. Left lower pole exophytic cyst. Inpatient medications: - ceftriaxone 1 gram IV daily - normal saline 80 mL an hour - atorvastatin 40 mg by mouth daily - calcitriol 0.25 mcg by mouth every 72 hours - Lexapro 20 mg by mouth daily - Pepcid 20 mg by mouth twice a day - ferrous sulfate 325 mg by mouth daily - gabapentin 300 mg by mouth twice a day - insulin - morphine as needed - Zofran as needed - Lyrica 100 mg by mouth twice a day - Flomax 0.8 mg by mouth at bedtime ASSESSMENT AND PLAN: 1. Nonoliguric acute renal failure superimposed on chronic kidney disease stage 3 in the setting of left hydroureteronephrosis from multiple stones in the ureter. The patient is postoperative day one from laser lithotripsy with stone basketing and now with left ureteral stent. He remains on IV fluids. Creatinine is downtrending but not yet back to baseline. He completed a 24-hour panel as an outpatient and we will followup on the results. He also had a stone sent for analysis and we will followup on the results to decrease his risk for stone formation going forward. He will followup with urology as an outpatient for stent removal. He continues on Flomax. 2. Nausea. The patient's nausea is improved. His lipase was 1100 on admission and so he was kept nothing by mouth per the primary team overnight. Lipase is down to 100 now. He is resumed on a diet. He was complaining of thirst when I saw him at the bedside this morning. We will leave him on IV fluids at present, as he is currently in a negative fluid balance. 3. Hypertension. Blood pressure is acceptable at current. 4. Diabetes. The patient's blood sugars are less than 200. He continues on sliding scale. No RINKU or ARB due to his history of allergy. Thank you for involving me in the care of this patient. I will be happy to follow the patient along with you.
--- NOTE | 2017-10-08 19:47 | IPN ---
DATE: 10/08/2017 SUBJECTIVE: The patient is seen this morning at the bedside. He reports he feels well, has been tolerating oral intake without any issues, and continues to pass urine. He wants to know when he can be discharged. REVIEW OF SYSTEMS: Negative for fevers, chills, vomiting, diarrhea, chest pain, palpitations, shortness of breath. Review of systems is positive for left flank pain and improved nausea. Remainder of review of systems is negative. OBJECTIVE: VITAL SIGNS: Temperature 97.2, pulse 61, respiratory rate 16, blood pressure 137/67, saturating 96% on room air. INTAKE AND OUTPUT: Urine output yesterday 3095 mL. Weight in the bed scale today 121.5 kg. PHYSICAL EXAMINATION: The patient is seen ambulating in the room in no acute distress. Extraocular muscles are intact. Mucous membranes are moist. Neck is supple. No jugular venous distention. CARDIAC: S1, S2. Two plus radial pulse. No significant edema. LUNGS: Clear to auscultation bilaterally. ABDOMEN: Soft, obese. There is some improved tenderness to palpation in the left flank and left lower quadrant. GENITOURINARY: No Banks catheter. EXTREMITIES: No significant edema. NEUROLOGIC: No focal deficits. PSYCHIATRIC: Appropriate mood and affect. LABORATORY DATA: White count 5.7, hemoglobin 11.9, platelets 195. Sodium 140, potassium 4.9, bicarbonate 30, BUN 24, creatinine 2.2, glucose 219. Lipase 464. INPATIENT MEDICATIONS: The patient remains on normal saline at 80 mL an hour. His remainder of medications are unchanged from prior. ASSESSMENT AND PLAN: 1. Acute kidney injury on chronic kidney disease stage III in the setting of multiple left ureteral stones and hydroureteronephrosis, status post laser lithotripsy with stone basketing and with stent placement. The patient's renal function continues to improve and he is making urine well with stable electrolytes. He will followup as an outpatient with urology for stent removal and will continue on Flomax. He is not yet at his baseline renal function and I will see him in the office within 10 days for followup. He completed a 24-hour Litholink as an outpatient and results are pending to review stone former panel and decrease his risk of stone formation going forward. He also had a stone that was sent for analysis and we will followup on the results. 2. Diabetes. Glucose is less than 200 and he continues on insulin. 3. Elevated lipase. The patient's nausea has improved. His lipase is down trending. Ultrasound did not show any significant pancreas findings. He is tolerating oral intake well.
[2017-10-09] MEDS ORDERED: CALCITRIOL 0.25 MCG CAP (S0169) PO SCH (09:00)
== END 2017-10-08 17:00 | disposition home or self-care (01) | DRG 669 ==
LOC: M ED 09:56 → M ED INP 14:18 → M PCU 15:45
PROVIDERS: ADMIT Internal Medicine; ATTEND Internal Medicine
PROC: 0T778DZ Dilation of Left Ureter with Intraluminal Device, Via Natural or Artificial Opening Endoscopic (ICD-10-PCS; 2017-10-06)
PROC: 0TC78ZZ Extirpation of Matter from Left Ureter, Via Natural or Artificial Opening Endoscopic (ICD-10-PCS; principal; 2017-10-06 13:02)
DX: N13.2 Hydronephrosis with renal and ureteral calculous obstruction (principal); Z68.41 Body mass index [BMI] 40.0-44.9, adult; N17.9 Acute kidney failure, unspecified; N18.3 Chronic kidney disease, stage 3 (moderate); E66.01 Morbid (severe) obesity due to excess calories; E11.40 Type 2 diabetes mellitus with diabetic neuropathy, unspecified; I25.10 Atherosclerotic heart disease of native coronary artery without angina pectoris; G47.33 Obstructive sleep apnea (adult) (pediatric); I12.9 Hypertensive chronic kidney disease with stage 1 through stage 4 chronic kidney disease, or unspecified chronic kidney disease; Z79.899 Other long term (current) drug therapy; Z87.891 Personal history of nicotine dependence; Z88.8 Allergy status to other drugs, medicaments and biological substances; I87.9 Disorder of vein, unspecified; I25.2 Old myocardial infarction; N40.0 Benign prostatic hyperplasia without lower urinary tract symptoms

== ENCOUNTER → 2017-10-06 | Outpatient (REF) | payer MEDICARE, OTHER | LOC: M LAB REF 13:14 | PROVIDERS: ATTEND Internal Medicine Nephrology | DX: N18.3 Chronic kidney disease, stage 3 (moderate) (principal); N39.0 Urinary tract infection, site not specified ==

== ENCOUNTER 2017-11-09 11:15 | Emergency (ER) | payer MEDICARE, BC, OTHER ==
[~2017-11-09] VITALS: Ht 170.2 cm; Wt 113.6 kg
[~2017-11-09 11:15] MED LIST changes: +ATOR40TA75 PO; +CALC1CAP31 PO; +CHLO125TA; +CHLO25TA PO; +FAMO1TAB11 PO; +FENO1TAB41 PO; +FERR1TAB8 PO; +FLOM5CAP PO; +GABA-282 PO; +HYDR-3716 PO; +PREG100CA PO; +TIMO0.5S29 OU; +TIMOXEOPD OU; +TRAV04OPD OU; +VICT18IN SC
[2017-11-09] MEDS ORDERED: ALBUTEROL SULFATE 2.5 MG/0.5 ML INH NEB SOLN NEB ONE (13:30)
[2017-11-09] MEDS ORDERED: PRED20TA PO (14:06)
[2017-11-09] MEDS ORDERED: PROAAER10 INH (14:06)
[2017-11-09] MEDS ORDERED: E-ZMIS3 XX (14:07)
[2017-11-09 14:27] VITALS: BP 132/69
--- NOTE | 2017-11-09 15:03 | REP ---
Chest x-ray: Two views. History: Cough times 5 weeks. Comparison chest x-ray: October 06, 2017. Findings: The patient is status post ventral discectomy and fusion plating in the cervical spine. The lungs are well inflated and clear. Pleural angles are sharp. Cardiomediastinal silhouette is unremarkable. No other bony abnormality is seen. Impression: No active disease. Signed by Ar Castillo MD 11/10/2017 08:13 A
== END 2017-11-09 14:28 | disposition home or self-care (01) ==
LOC: M ED 11:15
DX: R05 Cough (principal); R06.2 Wheezing; I25.10 Atherosclerotic heart disease of native coronary artery without angina pectoris; I25.2 Old myocardial infarction; Z95.5 Presence of coronary angioplasty implant and graft; E11.9 Type 2 diabetes mellitus without complications; I10 Essential (primary) hypertension; Z87.442 Personal history of urinary calculi; Z95.1 Presence of aortocoronary bypass graft; Z98.84 Bariatric surgery status; Z87.891 Personal history of nicotine dependence; Z79.4 Long term (current) use of insulin; Z79.899 Other long term (current) drug therapy; Z88.8 Allergy status to other drugs, medicaments and biological substances

== ENCOUNTER 2018-03-22 09:39 | Emergency (ER) | payer MEDICARE, BC, OTHER ==
[2018-03-22] MEDS: NS 1,000 ML IV (10:34)
[2018-03-22] MEDS: MORPHINE 4 MG/ML 1ML VIAL/SYRINGE (J2270) IV (10:35)
[2018-03-22] MEDS: ONDANSETRON 4MG/2ML VIAL (J2405) IV (10:35)
[2018-03-22 10:44] LABS: BASO % 0.4 % (0.0-1.0); EOS # 0.3 10^3/uL (0.0-0.50); EOS % 2.7 % (0.0-3.0); HEMATOCRIT 46.5 % (42.0-52.0); HEMOGLOBIN 15.6 g/dl (13.5-17.5); IMMATURE GRANULOCYTE % 0.2 % (0-3.0); LYMPH # 2.2 10^3/uL (1.5-4.5); MEAN CORPUSCULAR HEMOGLOBIN 28.4 pg (27.0-33.0); MEAN CORPUSCULAR HGB CONC 33.5 g/dl (32.0-36.5); MEAN CORPUSCULAR VOLUME 84.7 fl (80.0-96.0); NEUTROPHILS # 7.1 10^3/uL (1.8-7.7); NEUTROPHILS % 66.7 % (36.0-66.0); PLATELET COUNT, AUTOMATED 227 10^3/uL (150-450); RED BLOOD COUNT 5.49 10^6/uL (4.30-6.10); RED CELL DISTRIBUTION WIDTH 14.3 % (11.5-14.5); WHITE BLOOD COUNT 10.6 10^3/uL (4.0-10.0)
[2018-03-22 10:46] LABS: BEDSIDE GLUCOSE 141 MG/DL (80-115)
[2018-03-22 10:46] LABS: KETONE, URINE AUTO RFX NEGATIVE (NEGATIVE); LEUKOCYTE ESTERASE UR AUTO RFX NEGATIVE (NEGATIVE); MUCUS, URINE RFX SMALL (NEGATIVE); NITRITE, URINE AUTO RFX NEGATIVE (NEGATIVE); RBC, URINE AUTO RFX 2 /HPF (0-3); SPECIFIC GRAVITY UR AUTO RFX 1.019 (1.002-1.035); SQUAM EPITHELIAL CELL UR AURFX 0 /HPF (0-6); WBC, URINE AUTO RFX 2 /HPF (0-3)
[2018-03-22 10:53] LABS: INR 1.01; PROTHROMBIN TIME 13.4 SECONDS (12.4-14.5)
[2018-03-22 10:54] LABS: PARTIAL THROMBOPLASTIN TIME 29.7 SECONDS (26.8-37.9)
[2018-03-22 11:14] LABS: ALBUMIN 3.7 GM/DL (3.2-5.2); ALBUMIN/GLOBULIN RATIO 0.95 (1.00-1.93); ALKALINE PHOSPHATASE 111 U/L (45-117); ALT/SGPT 33 U/L (12-78); ANION GAP 6 MEQ/L (8-16); AST/SGOT 37 U/L (7-37); BILIRUBIN,DIRECT 0.2 MG/DL (0.0-0.2); BILIRUBIN,TOTAL 0.7 MG/DL (0.2-1.0); BLOOD UREA NITROGEN 29 MG/DL (7-18); CALCIUM LEVEL 8.9 MG/DL (8.8-10.2); CARBON DIOXIDE LEVEL 28 MEQ/L (21-32); CHLORIDE LEVEL 105 MEQ/L (98-107); CREATININE FOR GFR 1.79 MG/DL (0.70-1.30); GLOMERULAR FILTRATION RATE 40.5 (>49); GLUCOSE, FASTING 146 MG/DL (70-100); LIPASE 148 U/L (73-393); POTASSIUM SERUM 3.8 MEQ/L (3.5-5.1); SODIUM LEVEL 139 MEQ/L (136-145); TOTAL PROTEIN 7.6 GM/DL (6.4-8.2)
== END 2018-03-22 12:27 | disposition home or self-care (01) ==
LOC: M ED 09:39
DX: K57.90 Diverticulosis of intestine, part unspecified, without perforation or abscess without bleeding (principal); R00.1 Bradycardia, unspecified; I25.2 Old myocardial infarction; I10 Essential (primary) hypertension; E78.5 Hyperlipidemia, unspecified; Z87.442 Personal history of urinary calculi; K21.9 Gastro-esophageal reflux disease without esophagitis; M19.90 Unspecified osteoarthritis, unspecified site; Z95.5 Presence of coronary angioplasty implant and graft; Z98.84 Bariatric surgery status; M21.372 Foot drop, left foot; R94.5 Abnormal results of liver function studies; Z79.82 Long term (current) use of aspirin; Z79.4 Long term (current) use of insulin; Z79.899 Other long term (current) drug therapy; Z88.8 Allergy status to other drugs, medicaments and biological substances
CPT/HCPCS: J2270

== ENCOUNTER → 2018-05-17 | Outpatient (REF) | payer MEDICARE, OTHER ==
[2018-05-17 13:39] LABS: FERRITIN 44 NG/ML (26-388); IRON (FE) 67 UG/DL (65-175); PERCENT SATURATION 20.4 % (19.7-50.0); TOTAL IRON BINDING CAPACITY 329 UG/DL (250-450)
== END ==
LOC: M LAB REF 13:02
DX: N18.3 Chronic kidney disease, stage 3 (moderate) (principal); D50.9 Iron deficiency anemia, unspecified
CPT/HCPCS: 83550

== ENCOUNTER → 2018-05-23 | Outpatient (CLI) | payer MEDICARE, OTHER | LOC: M WUC 10:06 | DX: D48.5 Neoplasm of uncertain behavior of skin (principal) | CPT/HCPCS: 73590 ==

== ENCOUNTER → 2018-06-27 | Outpatient (CLI) | payer MEDICARE, BC, OTHER | LOC: M RAD 08:52 | DX: M51.36 Other intervertebral disc degeneration, lumbar region (principal); M48.061 Spinal stenosis, lumbar region without neurogenic claudication; R53.1 Weakness | CPT/HCPCS: 72148 ==

== ENCOUNTER → 2019-05-01 | Outpatient (CLI) | payer MEDICARE, BC, OTHER ==
[~2019-05-01] MED LIST changes: -/ESCI20TA PO; +ASPI-255 PO; +CIPR-249 PO; +E-ZMIS3 XX; +FLAG500T PO; +FLOM0.4C39 PO; -FLOM5CAP PO; -GABA-282 PO; +GABA-843 PO; +LEXA1TAB2 PO; +METO-745 OR; +NORT10CA2 PO; +PERC5TAB12 PO; +PRED20TA PO; +PROAAER10 INH; -TOPR100T OR
--- NOTE | 2019-05-01 19:19 | REP ---
LEFT FOOT, FOUR VIEWS: Four views of the left foot performed. There is no acute fracture or dislocation. There is mild posterior calcaneal spurring. Moderate spurring is noted of the dorsal talus. Metatarsophalangeal joints appear unremarkable. There is mild diffuse narrowing of the interphalangeal joints. IMPRESSION: Degenerative changes as above. No acute fracture or dislocation. Electronically Signed by Parker Rubi MD 05/06/2019 01:36 P
== END ==
LOC: M ADAMS 17:26
PROVIDERS: ATTEND Physician Assistant Medical
DX: M77.32 Calcaneal spur, left foot (principal)

== ENCOUNTER 2019-06-08 16:28 | Emergency (ER) | payer MEDICARE, BC, OTHER ==
[~2019-06-08] VITALS: Ht 170.2 cm; Wt 122.7 kg
[2019-06-08] MEDS ORDERED: NS 1,000 ML IV ONE (17:30)
[2019-06-08] MEDS ORDERED: MORPHINE 4 MG/ML 1ML VIAL/SYRINGE (J2270) IV ONE (17:30)
[2019-06-08 17:50] LABS: BASO % 0.6 % (0.0-1.0); EOS # 0.3 10^3/uL (0.0-0.50); EOS % 4.6 % (0.0-3.0); HEMATOCRIT 46.1 % (42.0-52.0); HEMOGLOBIN 15.1 g/dl (13.5-17.5); LYMPH # 2.1 10^3/uL (1.5-4.5); LYMPH % 33.3 % (24.0-44.0); MEAN CORPUSCULAR HEMOGLOBIN 28.9 pg (27.0-33.0); MEAN CORPUSCULAR HGB CONC 32.8 g/dl (32.0-36.5); MEAN CORPUSCULAR VOLUME 88.3 fl (80.0-96.0); MONO # 0.6 10^3/uL (0.0-0.8); MONO % 9.3 % (0.0-5.0); NEUTROPHILS # 3.2 10^3/uL (1.8-7.7); NEUTROPHILS % 51.7 % (36.0-66.0); PLATELET COUNT, AUTOMATED 237 10^3/uL (150-450); RED BLOOD COUNT 5.22 10^6/uL (4.30-6.10); WHITE BLOOD COUNT 6.2 10^3/uL (4.0-10.0)
--- NOTE | 2019-06-08 17:52 | REPVR ---
EXAM: CT Abdomen and Pelvis Without Contrast EXAM DATE/TIME: 06/08/2019 5:26 PM CLINICAL HISTORY: 63 years old, male; Abdominal pain; Flank; Left; Additional info: L flank pain/hematuria TECHNIQUE: Imaging protocol: Axial computed tomography images of the abdomen and pelvis without contrast. Coronal and sagittal reformatted images were created and reviewed. Radiation optimization: All CT scans at this facility use at least one of these dose optimization techniques: automated exposure control; mA and/or kV adjustment per patient size (includes targeted exams where dose is matched to clinical indication); or iterative reconstruction. COMPARISON: CT ABD PELVIS W/O CONTRAST 03/22/2018 11:16 AM FINDINGS: Liver: Normal. No mass. Gallbladder and bile ducts: The gallbladder is incompletely distended. This is most likely related to incomplete fasting. Cholelithiasis. Clinical correlation to exclude gallbladder pathology suggested. Pancreas: Normal. No ductal dilation. Spleen: Normal. No splenomegaly. Adrenals: Normal. No mass. Kidneys and ureters: Lower pole cyst left kidney measures 1.6 cm. Stomach and bowel: This patient is status post gastric bypass surgery. Mild diverticulosis is present in the distal colon. No diverticulitis. Appendix: No evidence of appendicitis. Intraperitoneal space: Normal. No free air. No significant fluid collection. Vasculature: The aorta demonstrates mild atherosclerotic calcification. Lymph nodes: Normal. No enlarged lymph nodes. Bladder: Unremarkable as visualized. Reproductive: Unremarkable as visualized. Bones/joints: Status post interbody fusion of L3-L5 using transpedicular screws metallic side plates status post laminectomies at L4 and L5. Moderate to severe central spinal stenosis at L3-4. Soft tissues: Unremarkable. IMPRESSION: 1. The gallbladder is incompletely distended. This is most likely related to incomplete fasting. Cholelithiasis. Clinical correlation to exclude gallbladder pathology suggested. 2. This patient is status post gastric bypass surgery. 3. Mild diverticulosis is present in the distal colon. No diverticulitis. Electronically signed by: Jefe Howard On 06/08/2019 17:52:15 PM
[2019-06-08 18:03] LABS: INR 0.95; PROTHROMBIN TIME 12.4 SECONDS (11.8-14.0)
[2019-06-08 18:04] LABS: PARTIAL THROMBOPLASTIN TIME 29.2 SECONDS (25.0-38.4)
[2019-06-08 18:17] LABS: ALBUMIN 3.6 GM/DL (3.2-5.2); ALT/SGPT 36 U/L (12-78); BILIRUBIN,DIRECT < 0.1 MG/DL (0.0-0.2); BILIRUBIN,TOTAL 0.4 MG/DL (0.2-1.0); TOTAL PROTEIN 7.1 GM/DL (6.4-8.2)
[2019-06-08] MEDS ORDERED: CIPROFLOXACIN 400 MG in APPROPRIATE DILUENT 1 EA IV ONE (18:30)
[2019-06-08] MEDS ORDERED: BACT800T5 PO (20:40)
[2019-06-08 20:46] VITALS: BP 154/79
--- NOTE | 2019-06-10 12:46 | ED PDOC ---
Post-Departure Follow-Up dr east faxed formal report of ct abd/p for fu Sanchez Chew MD Jun 10, 2019 12:46
== END 2019-06-08 20:51 | disposition home or self-care (01) ==
LOC: M ED 16:28
DX: N30.00 Acute cystitis without hematuria (principal); I25.2 Old myocardial infarction; E11.9 Type 2 diabetes mellitus without complications; I10 Essential (primary) hypertension; E78.5 Hyperlipidemia, unspecified; K21.9 Gastro-esophageal reflux disease without esophagitis; K57.32 Diverticulitis of large intestine without perforation or abscess without bleeding; G47.30 Sleep apnea, unspecified; N18.9 Chronic kidney disease, unspecified; N40.0 Benign prostatic hyperplasia without lower urinary tract symptoms; M54.9 Dorsalgia, unspecified; F32.9 Major depressive disorder, single episode, unspecified; E66.9 Obesity, unspecified; Z87.442 Personal history of urinary calculi; Z98.84 Bariatric surgery status; Z79.82 Long term (current) use of aspirin; Z79.4 Long term (current) use of insulin; Z79.899 Other long term (current) drug therapy; Z88.8 Allergy status to other drugs, medicaments and biological substances
CPT/HCPCS: 74176; 80047; 80076; 81001; 85025; 85610; 85730; 87086; 96361; 96365; 96366; 96375; 99284; J0744; J2270

== ENCOUNTER → 2019-10-17 | Outpatient (REF) | payer MEDICARE, OTHER ==
[~2019-10-17] MED LIST changes: +BACT800T5 PO
[2019-10-17 13:43] LABS: APPEARANCE, URINE CLEAR (CLEAR); BACTERIA, URINE AUTO 1+ (NEGATIVE); BILIRUBIN, URINE AUTO NEGATIVE (NEGATIVE); BLOOD, URINE BLOOD 1+ (NEGATIVE); COLOR, URINE YELLOW (YELLOW); GLUCOSE, URINE (UA) AUTO NEGATIVE (NEGATIVE); KETONE, URINE AUTO NEGATIVE (NEGATIVE); LEUKOCYTE ESTERASE, URINE AUTO TRACE (NEGATIVE); MUCUS, URINE SMALL (NEGATIVE); NITRITE, URINE AUTO NEGATIVE (NEGATIVE); PROTEIN, URINE AUTO NEGATIVE (NEGATIVE); RBC, URINE AUTO 1 /HPF (0-3); SPECIFIC GRAVITY URINE AUTO 1.008 (1.002-1.035); SQUAMOUS EPITHELIAL CELL UR AU 1 /HPF (0-6); UROBILINOGEN, URINE AUTO 0.2 mg/dL (0.0-2.0); WBC, URINE AUTO 4 /HPF (0-3)
[2019-10-17 14:56] LABS: CHLAMYDIA DNA AMPLIFICATION NEGATIVE (NEGATIVE); GC DNA AMPLIFICATION NEGATIVE (NEGATIVE)
== END ==
LOC: M SMT 13:00
PROVIDERS: ATTEND Nurse Practitioner Family
DX: N50.819 Testicular pain, unspecified (principal)
CPT/HCPCS: 81001; 87088; 87186; 87491; 87591; G0463

== ENCOUNTER → 2019-10-18 | Outpatient (CLI) | payer MEDICARE, BC, OTHER ==
--- NOTE | 2019-10-18 12:41 | REP ---
SCROTAL ULTRASOUND: Real-time sonographic evaluation of scrotum and contents performed. Testicles are normal in size and echotexture, right testicle measuring 4.1 x 2.1 x 2.9 cm and left testicle 3.9 x 2.3 x 3.0 cm. There is no testicular mass or torsion. Blood flow is seen in each testicle with duplex Doppler evaluation. There are bilateral subcentimeter simple and complex cysts in the head of each epididymis. There is a 7 mm anechoic cyst and a complex 6 cm cyst in the head of the right epididymis. Multiple cystic structures in the head of the left epididymis are seen, simple and complex, largest 8 mm. There is a free calcification in the right scrotum, which is mobile, measuring 5 mm in diameter. Mild to moderate left hydrocele is seen containing some scattered free-floating debris. Cystic changes in the mediastinum of the left testis is compatible with some degree of tubular ectasia. IMPRESSION: No testicular mass or torsion. Subcentimeter cysts in the head of each epididymis, as discussed above. 5 mm scrotal colleen on the right. Tiny cystic changes in the mediastinum of the left testis, compatible with some degree of tubular ectasia. Moderate left hydrocele contains free-floating debris. Electronically Signed by Parker Rubi MD 10/21/2019 09:20 A
== END ==
LOC: M RAD 09:22
PROVIDERS: ATTEND Nurse Practitioner Family
DX: N50.819 Testicular pain, unspecified (principal); Z12.5 Encounter for screening for malignant neoplasm of prostate
CPT/HCPCS: 36415; 76870; 93976; G0103

== ENCOUNTER → 2019-11-04 | Outpatient (REF) | payer MEDICARE, OTHER ==
[2019-11-04 13:37] LABS: APPEARANCE, URINE CLEAR (CLEAR); BACTERIA, URINE AUTO NEGATIVE (NEGATIVE); BILIRUBIN, URINE AUTO NEGATIVE (NEGATIVE); BLOOD, URINE BLOOD NEGATIVE (NEGATIVE); COLOR, URINE YELLOW (YELLOW); GLUCOSE, URINE (UA) AUTO 3+ mg/dL (NEGATIVE); KETONE, URINE AUTO NEGATIVE (NEGATIVE); LEUKOCYTE ESTERASE, URINE AUTO NEGATIVE (NEGATIVE); NITRITE, URINE AUTO NEGATIVE (NEGATIVE); PROTEIN, URINE AUTO NEGATIVE (NEGATIVE); RBC, URINE AUTO 0 /HPF (0-3); SPECIFIC GRAVITY URINE AUTO 1.009 (1.002-1.035); SQUAMOUS EPITHELIAL CELL UR AU 1 /HPF (0-6); UROBILINOGEN, URINE AUTO 0.2 mg/dL (0.0-2.0); WBC, URINE AUTO 1 /HPF (0-3)
== END ==
LOC: M SMT 13:19
PROVIDERS: ATTEND Nurse Practitioner Family
DX: N45.2 Orchitis (principal)

== ENCOUNTER 2020-01-30 16:47 | Emergency (ER) | payer MEDICARE, BC, OTHER ==
[~2020-01-30] VITALS: Ht 170.2 cm; Wt 129.0 kg
[2020-01-30] MEDS ORDERED: cefTRIAXone SOD 1 GM in D5W MINI-BAG PLUS 50 ML IV ONE (18:45)
[2020-01-30] MEDS ORDERED: ADACEL/BOOSTRIX VACCINE (DIPHTH/PERTUSS/ACELL/TETANUS)0.5ML SYR (90715) IM ONE (18:45)
--- NOTE | 2020-01-30 18:46 | REP ---
RIGHT FIRST DIGIT: Four views of the right first digit are performed. There is cortical disruption and avulsion of a portion of the tuft the distal phalanx. There is soft tissue disruption. There are moderate degenerative changes at the distal interphalangeal joint. Electronically Signed by Parker Rubi MD 01/31/2020 05:04 P
[2020-01-30] MEDS ORDERED: LIDOCAINE 1% MDV 20ML VIAL IM ONE (19:45)
[2020-01-30] MEDS ORDERED: KEFL500C17 PO (20:12)
[2020-01-30 20:24] VITALS: BP 141/68
== END 2020-01-30 20:28 | disposition home or self-care (01) ==
LOC: M ED 16:47
DX: S61.001A Unspecified open wound of right thumb without damage to nail, initial encounter (principal); S62.501A Fracture of unspecified phalanx of right thumb, initial encounter for closed fracture; W31.2XXA Contact with powered woodworking and forming machines, initial encounter; Y92.9 Unspecified place or not applicable; M19.041 Primary osteoarthritis, right hand; I11.9 Hypertensive heart disease without heart failure; E11.9 Type 2 diabetes mellitus without complications; Z95.5 Presence of coronary angioplasty implant and graft; Z88.8 Allergy status to other drugs, medicaments and biological substances; Z79.51 Long term (current) use of inhaled steroids; Z79.82 Long term (current) use of aspirin; Z79.4 Long term (current) use of insulin; Z79.899 Other long term (current) drug therapy
CPT/HCPCS: 36415; 73140; 80047; 90471; 90715; 96365; 96372; 99284; J0696

== ENCOUNTER → 2020-12-18 | Outpatient (CLI) | payer MEDICARE, BC, OTHER ==
[~2020-12-18] MED LIST changes: +GABA-282 PO; -GABA-843 PO; +KEFL500C17 PO
== END ==
LOC: M LABSMTC 11:50
PROVIDERS: ATTEND Family Medicine
DX: Z20.822 Contact with and (suspected) exposure to COVID-19 (principal)

== ENCOUNTER → 2021-03-26 | Outpatient (CLI) | payer MEDICARE, BC, OTHER ==
--- NOTE | 2021-03-26 11:11 | REP ---
INDICATION: CALCULUS OF KIDNEY COMPARISON: Comparison CT study 08 June 2019.. TECHNIQUE: Helical scanning is acquired and 3 mm axial images were reformatted. Coronal and sagittal MPR images were generated and reviewed. FINDINGS: Preliminary digital hydraulic corrugating machine operator radiograph demonstrates lumbar spine fusion L3 through L5. Bowel gas pattern is normal. The lung bases show mild linear fibrosis in the right lower lobe. Lung bases are otherwise clear. Mitral annular calcification is seen. The patient is status post gastric bypass. There is a tiny accessory splenule again noted in the left upper quadrant. The liver and the spleen are otherwise unremarkable. No abnormality is noted in the gallbladder or the pancreas. Normal adrenal glands are seen. There is no evidence of intrarenal calculus or hydronephrosis on either side. There is a peripheral cyst in the lower pole left kidney again noted measuring 1.8 cm in greatest diameter. No renal mass lesion is observed. No retroperitoneal mass or adenopathy is seen. Some vascular calcification is observed. Seminal vesicles and urinary bladder are unremarkable. There are dystrophic calcifications in the prostate gland. No abdominal wall defect is seen. There are postoperative calcifications in a linear fashion with some fibrosis in the left anterior abdominal wall subcutaneous fat layer. This is unchanged. There is left colonic diverticulosis without CT evidence of diverticulitis again noted. A normal appendix is seen. No abdominal wall defect is observed. IMPRESSION: No urinary tract calculus or hydronephrosis is seen. Patient is status post gastric bypass. Left colonic diverticulosis. Status post lumbar spine fusion. <Electronically signed by Marcelo Castillo > 03/26/21 [id number]
== END ==
LOC: M RAD 09:33
PROVIDERS: ATTEND Nurse Practitioner Family
DX: N20.0 Calculus of kidney (principal)

== ENCOUNTER 2021-04-22 13:41 | Emergency (ER) | payer MEDICARE, BC, OTHER ==
[~2021-04-22] VITALS: Ht 170.2 cm; Wt 118.2 kg
--- NOTE | 2021-04-22 14:47 | REP ---
INDICATION: fall on plavix COMPARISON: None. TECHNIQUE: Axial noncontrast images from the skull base to the thoracic inlet with coronal reformations. This CT examination was performed using the following dose reduction techniques: Automated exposure control, adjustment of mA and/or kv according to the patient's size, and use of iterative reconstruction technique. FINDINGS: Age-related atrophy with periventricular leukomalacia and microvascular ischemic changes are appreciated. The ventricles and sulci are symmetric. Rubi-white differentiation is maintained. There is no evidence for acute intracranial hemorrhage, mass/mass effect, pathology or infarction. No extra-axial fluid collection. Calvarium is intact. Paranasal sinuses and mastoid air cells are clear. IMPRESSION: Age related atrophy and microvascular ischemic changes. No acute intracranial hemorrhage, infarction, or mass/mass effect. <Electronically signed by Jared Ramsey > 04/22/21 [id number]
--- NOTE | 2021-04-22 14:48 | REP ---
INDICATION: fall on plavix COMPARISON: None. TECHNIQUE: Axial noncontrast images from the skull base to the thoracic inlet with coronal and sagittal re-formations This CT examination was performed using the following dose reduction techniques: Automated exposure control, adjustment of mA and/or kv according to the patient's size, and use of iterative reconstruction technique. FINDINGS: Patient is noted to be status post anterior fixation at C4-C7. Multilevel age-related changes are noted. No evidence for acute fracture/compression injury or subluxation. Spinal canal is patent. Posterior elements and spinous processes appear intact. IMPRESSION: Status post anterior fixation. No evidence for acute fracture/compression injury or subluxation. <Electronically signed by Jared Ramsey > 04/22/21 [id number]
--- NOTE | 2021-04-22 15:03 | REP ---
INDICATION: fall, brusing. COMPARISON: Comparison radiographs of the left foot are from May 01, 2019.. TECHNIQUE: Four views of the left foot are provided. FINDINGS: Four views of the left foot demonstrate overall normal mineralization. Vascular calcification is observed. There is Achilles calcaneal spurring.. No fracture or subluxation is seen. No opaque foreign body noted. There is also some osteophyte formation dorsally at the talonavicular articulation. There is old posttraumatic deformity of the distal fibula. IMPRESSION: No acute bony abnormality. Vascular calcification, heel spur, and mild midfoot osteoarthritic spurring. No fracture seen.. <Electronically signed by Marcelo Castillo > 04/22/21 [id number]
[2021-04-22] MEDS ORDERED: holter monitor (16:58)
[2021-04-22 17:27] VITALS: BP 160/70
--- NOTE | 2021-04-22 19:58 | ECGEPIP ---
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
== END 2021-04-22 17:32 | disposition home or self-care (01) ==
LOC: M ED 13:41
DX: S09.90XA Unspecified injury of head, initial encounter (principal); M79.672 Pain in left foot; W01.198A Fall on same level from slipping, tripping and stumbling with subsequent striking against other object, initial encounter; Y92.003 Bedroom of unspecified non-institutional (private) residence as the place of occurrence of the external cause; Y93.9 Activity, unspecified; Y99.9 Unspecified external cause status; M43.22 Fusion of spine, cervical region; E11.9 Type 2 diabetes mellitus without complications; I10 Essential (primary) hypertension; G47.33 Obstructive sleep apnea (adult) (pediatric); I25.10 Atherosclerotic heart disease of native coronary artery without angina pectoris; Z98.84 Bariatric surgery status; Z88.8 Allergy status to other drugs, medicaments and biological substances; Z79.899 Other long term (current) drug therapy; Z79.82 Long term (current) use of aspirin

== ENCOUNTER → 2021-04-23 | Outpatient (CLI) | payer MEDICARE, BC, OTHER ==
[~2021-04-23] MED LIST changes: +holter monitor
--- NOTE | 2021-04-24 17:05 | HOLTMON ---
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 AND THERE WAS ALOT OF ARTIFACT AND INTERFERENCE. Heart rate variability was normal. No significant diary entries. There were occasional PVC's and PAC's with 3 supraventricular runs at rates up to 150 bpm, 12-13 beats in duration. No significant ST events or pauses. Electronically Signed on 04-24-2021 17:05:37 EDT by Garcia Gupta
== END ==
LOC: M EKG 04-22 17:46
PROVIDERS: ATTEND Internal Medicine
DX: R00.1 Bradycardia, unspecified (principal)

== ENCOUNTER → 2021-12-13 | Outpatient (REF) | payer MEDICARE, BC, OTHER ==
[2021-12-13 13:10] LABS: BASO # 0.1 10^3/uL (0.0-0.2); BASO % 0.7 % (0.0-1.0); EOS # 0.3 10^3/uL (0.0-0.5); EOS % 3.5 % (0.0-3.0); HEMATOCRIT 45.4 % (42.0-52.0); HEMOGLOBIN 14.1 g/dl (13.5-17.5); LYMPH # 2.3 10^3/uL (1.5-5.0); LYMPH % 29.8 % (24.0-44.0); MEAN CORPUSCULAR HEMOGLOBIN 24.7 pg (27.0-33.0); MEAN CORPUSCULAR HGB CONC 31.1 g/dl (32.0-36.5); MEAN CORPUSCULAR VOLUME 79.4 fl (80.0-96.0); MONO # 0.7 10^3/uL (0.0-0.8); MONO % 9.1 % (2.0-8.0); NEUTROPHILS # 4.4 10^3/uL (1.5-8.5); NEUTROPHILS % 56.6 % (36.0-66.0); PLATELET COUNT, AUTOMATED 254 10^3/uL (150-450); RED BLOOD COUNT 5.72 10^6/uL (4.30-6.10); WHITE BLOOD COUNT 7.7 10^3/uL (4.0-10.0)
[2021-12-13 13:53] LABS: ALBUMIN 3.6 GM/DL (3.2-5.2); ALT/SGPT 28 U/L (12-78); BILIRUBIN,TOTAL 0.5 MG/DL (0.2-1.0); BLOOD UREA NITROGEN 24 MG/DL (7-18); CALCIUM LEVEL 9.3 MG/DL (8.8-10.2); CARBON DIOXIDE LEVEL 27 MEQ/L (21-32); CHLORIDE LEVEL 103 MEQ/L (98-107); CREATININE FOR GFR 1.69 MG/DL (0.70-1.30); GLOMERULAR FILTRATION RATE 42.9 (>42); GLUCOSE, FASTING 145 MG/DL (70-100); POTASSIUM SERUM 4.1 MEQ/L (3.5-5.1); RHEUMATOID FACTOR QUANT < 10.0 IU/ML (<15.0); SODIUM LEVEL 137 MEQ/L (136-145); TOTAL PROTEIN 7.3 GM/DL (6.4-8.2)
[2021-12-13 13:58] LABS: VITAMIN B12 LEVEL 160 PG/ML
[2021-12-13 14:00] LABS: ERYTHROCYTE SEDIMENTATION RATE 10 mm/hr (0-20)
[2021-12-13 14:43] LABS: HEMOGLOBIN A1c 8.1 %
[2021-12-13 20:55] LABS: FOLATE 9.7 NG/ML
[2021-12-14 13:07] LABS: ANTI DOUBLE STRAND-DNA AB 13 IU/mL (0-9); ANTINUCLEAR ANTIBODIES DIRECT Positive (Negative); RNP ANTIBODIES <0.2 AI (0.0-0.9); SJOGREN'S ANTI SS-A <0.2 AI (0.0-0.9); SJOGREN'S ANTI SS-B <0.2 AI (0.0-0.9); SMITH ANTIBODIES <0.2 AI (0.0-0.9)
== END ==
LOC: M LAB REF 12:53
PROVIDERS: ATTEND Physician Assistant Medical
DX: R41.3 Other amnesia (principal); G62.9 Polyneuropathy, unspecified

== ENCOUNTER → 2021-12-13 | Outpatient (REF) | payer MEDICARE, BC, OTHER | LOC: M LAB REF 12:51 | PROVIDERS: ATTEND Nurse Practitioner Family | DX: E83.42 Hypomagnesemia (principal) ==

== ENCOUNTER → 2021-12-22 | Outpatient (CLI) | payer MEDICARE, BC, OTHER | LOC: M WUC 11:31 | PROVIDERS: ATTEND Internal Medicine | DX: M17.11 Unilateral primary osteoarthritis, right knee (principal) ==

== ENCOUNTER 2022-04-04 14:51 | Emergency (ER) | payer MEDICARE, BC, OTHER ==
[~2022-04-04] VITALS: Ht 170.2 cm; Wt 122.7 kg
[2022-04-04] MEDS ORDERED: LIDOCAINE 1% MDV 20ML VIAL SC ONE (18:45)
[2022-04-04] MEDS ORDERED: CEPH500C PO (19:41)
[2022-04-04] MEDS ORDERED: CEPHALEXIN 500 MG CAP PO ONE (19:45)
[2022-04-04 19:56] VITALS: BP 146/89
[2022-04-05] MEDS ORDERED: OXCA300T14 (16:14)
[2022-04-05] MEDS ORDERED: CALC250T (16:14)
[2022-04-05] MEDS ORDERED: INSU100I14 (16:14)
[2022-04-05] MEDS ORDERED: CHLO125TA (16:14)
[2022-04-05] MEDS ORDERED: TRUL0.5I (16:14)
== END 2022-04-04 19:57 | disposition home or self-care (01) ==
LOC: M ED 14:51
DX: S61.011A Laceration without foreign body of right thumb without damage to nail, initial encounter (principal); W31.2XXA Contact with powered woodworking and forming machines, initial encounter; N18.9 Chronic kidney disease, unspecified; J45.909 Unspecified asthma, uncomplicated; F32.A Depression, unspecified; F17.200 Nicotine dependence, unspecified, uncomplicated; E78.5 Hyperlipidemia, unspecified; I10 Essential (primary) hypertension; E11.9 Type 2 diabetes mellitus without complications; Z98.84 Bariatric surgery status; Z95.5 Presence of coronary angioplasty implant and graft; Z79.4 Long term (current) use of insulin; Z86.79 Personal history of other diseases of the circulatory system; Y92.009 Unspecified place in unspecified non-institutional (private) residence as the place of occurrence of the external cause; Y93.9 Activity, unspecified; Y99.9 Unspecified external cause status; Z79.51 Long term (current) use of inhaled steroids; Z79.899 Other long term (current) drug therapy

== ENCOUNTER 2022-04-05 15:56 | Emergency (ER) | payer MEDICARE, BC, OTHER ==
[~2022-04-05] VITALS: Ht 170.2 cm; Wt 122.7 kg
[~2022-04-05 15:56] MED LIST changes: +CEPH500C PO
[2022-04-05 16:03] VITALS: BP 145/93
[2022-04-05] MEDS ORDERED: CHLO125TA (16:14)
[2022-04-05] MEDS ORDERED: CALC250T (16:14)
[2022-04-05] MEDS ORDERED: TRUL0.5I (16:14)
[2022-04-05] MEDS ORDERED: INSU100I14 (16:14)
[2022-04-05] MEDS ORDERED: OXCA300T14 (16:14)
[2022-04-05] MEDS ORDERED: LIDOCAINE 1% MDV 20ML VIAL SC ONE (16:20)
== END 2022-04-05 16:58 | disposition home or self-care (01) ==
LOC: M ED 15:56
DX: Z48.89 Encounter for other specified surgical aftercare (principal); I10 Essential (primary) hypertension; E78.5 Hyperlipidemia, unspecified; Z98.84 Bariatric surgery status; E11.9 Type 2 diabetes mellitus without complications; N18.9 Chronic kidney disease, unspecified; M54.50 Low back pain, unspecified; Z95.5 Presence of coronary angioplasty implant and graft; Z86.79 Personal history of other diseases of the circulatory system; Z87.891 Personal history of nicotine dependence; Z88.8 Allergy status to other drugs, medicaments and biological substances; Z79.4 Long term (current) use of insulin; Z79.899 Other long term (current) drug therapy

== ENCOUNTER → 2022-04-29 | Outpatient (REF) | payer MEDICARE, BC, OTHER ==
[~2022-04-29] MED LIST changes: +CALC250T; +CEFD300CAP PO; +INSU100I14; +OXCA300T14; +TRUL0.5I
== END ==
LOC: M LAB REF 18:57
PROVIDERS: ATTEND Physician Assistant
DX: R30.0 Dysuria (principal)

== ENCOUNTER 2022-05-03 16:08 | Emergency (ER) | payer MEDICARE, BC, OTHER ==
[~2022-05-03] VITALS: Ht 167.6 cm; Wt 120.5 kg
[~2022-05-03 16:08] MED LIST changes: -CEFD300CAP PO
[2022-05-03 18:23] LABS: BASO % 0.1 % (0.0-1.0); EOS # 0.2 10^3/uL (0.0-0.5); EOS % 1.7 % (0.0-3.0); HEMATOCRIT 41.4 % (42.0-52.0); HEMOGLOBIN 12.9 g/dl (13.5-17.5); LYMPH # 2.6 10^3/uL (1.5-5.0); MEAN CORPUSCULAR HEMOGLOBIN 24.4 pg (27.0-33.0); MEAN CORPUSCULAR HGB CONC 31.2 g/dl (32.0-36.5); MEAN CORPUSCULAR VOLUME 78.3 fl (80.0-96.0); MONO # 0.8 10^3/uL (0.0-0.8); MONO % 9.1 % (2.0-8.0); NEUTROPHILS # 5.3 10^3/uL (1.5-8.5); NEUTROPHILS % 59.4 % (36.0-66.0); PLATELET COUNT, AUTOMATED 266 10^3/uL (150-450); RED BLOOD COUNT 5.29 10^6/uL (4.30-6.10); WHITE BLOOD COUNT 8.9 10^3/uL (4.0-10.0)
[2022-05-03 18:36] LABS: CALCIUM LEVEL 9.1 MG/DL (8.8-10.2); CREATININE FOR GFR 1.77 MG/DL (0.70-1.30); GLOMERULAR FILTRATION RATE 40.6 (>42); POTASSIUM SERUM 4.2 MEQ/L (3.5-5.1)
[2022-05-03] MEDS ORDERED: NS 500 ML IV ONE (19:00)
[2022-05-03] MEDS ORDERED: cefTRIAXone SOD 1 GM in D5W MINI-BAG PLUS 50 ML IV ONE (21:35)
[2022-05-03 22:24] VITALS: BP 134/62
[2022-05-03] MEDS ORDERED: CEFD300CAP PO (22:27)
== END 2022-05-03 22:32 | disposition home or self-care (01) ==
LOC: M ED 16:08
DX: N10 Acute pyelonephritis (principal); E11.9 Type 2 diabetes mellitus without complications; I10 Essential (primary) hypertension; Z88.8 Allergy status to other drugs, medicaments and biological substances; Z87.442 Personal history of urinary calculi; Z98.84 Bariatric surgery status; Z95.5 Presence of coronary angioplasty implant and graft; Z79.51 Long term (current) use of inhaled steroids; Z79.4 Long term (current) use of insulin; Z79.899 Other long term (current) drug therapy
CPT/HCPCS: 74176; 80048; 81001; 85025; 87086; 96361; 96365; 99284; J0696

== ENCOUNTER → 2022-05-11 | Outpatient (CLI) | payer MEDICARE, BC, OTHER ==
[~2022-05-11] MED LIST changes: +CEFD300CAP PO
== END ==
LOC: M RAD 07:36
PROVIDERS: ATTEND Internal Medicine
DX: N45.3 Epididymo-orchitis (principal)

== ENCOUNTER → 2022-06-15 | Outpatient (REF) | payer MEDICARE, BC, OTHER ==
[2022-06-15 17:44] LABS: APPEARANCE, URINE CLEAR (CLEAR); BACTERIA, URINE AUTO NEGATIVE (NEGATIVE); BILIRUBIN, URINE AUTO NEGATIVE (NEGATIVE); BLOOD, URINE BLOOD NEGATIVE (NEGATIVE); COLOR, URINE YELLOW (YELLOW); GLUCOSE, URINE (UA) AUTO 1+ mg/dL (NEGATIVE); KETONE, URINE AUTO NEGATIVE (NEGATIVE); LEUKOCYTE ESTERASE, URINE AUTO NEGATIVE (NEGATIVE); NITRITE, URINE AUTO NEGATIVE (NEGATIVE); PROTEIN, URINE AUTO NEGATIVE (NEGATIVE); RBC, URINE AUTO 0 /HPF (0-3); SPECIFIC GRAVITY URINE AUTO 1.016 (1.002-1.035); SQUAMOUS EPITHELIAL CELL UR AU 0 /HPF (0-6); UROBILINOGEN, URINE AUTO 0.2 mg/dL (0.0-2.0); WBC, URINE AUTO 1 /HPF (0-3)
== END ==
LOC: M LABWUC 15:19
PROVIDERS: ATTEND Nurse Practitioner Women's Health
DX: N50.819 Testicular pain, unspecified (principal); Z12.5 Encounter for screening for malignant neoplasm of prostate

== ENCOUNTER → 2022-06-15 | Outpatient (CLI) | payer MEDICARE, BC, OTHER ==
[2022-06-15 18:25] LABS: BASO # 0.1 10^3/uL (0.0-0.2); BASO % 0.7 % (0.0-1.0); EOS # 0.4 10^3/uL (0.0-0.5); EOS % 4.9 % (0.0-3.0); HEMATOCRIT 40.9 % (42.0-52.0); HEMOGLOBIN 12.4 g/dl (13.5-17.5); LYMPH # 2.1 10^3/uL (1.5-5.0); LYMPH % 29.2 % (24.0-44.0); MEAN CORPUSCULAR HGB CONC 30.3 g/dl (32.0-36.5); MEAN CORPUSCULAR VOLUME 79.3 fl (80.0-96.0); MONO # 0.6 10^3/uL (0.0-0.8); MONO % 7.8 % (2.0-8.0); NEUTROPHILS # 4.2 10^3/uL (1.5-8.5); NEUTROPHILS % 57.1 % (36.0-66.0); PLATELET COUNT, AUTOMATED 290 10^3/uL (150-450); RED BLOOD COUNT 5.16 10^6/uL (4.30-6.10); WHITE BLOOD COUNT 7.3 10^3/uL (4.0-10.0)
[2022-06-15 19:20] LABS: ERYTHROCYTE SEDIMENTATION RATE 14 mm/hr (0-20)
[2022-06-15 19:34] LABS: ALBUMIN 3.3 GM/DL (3.2-5.2); ALT/SGPT 22 U/L (12-78); BILIRUBIN,TOTAL 0.6 MG/DL (0.2-1.0); BLOOD UREA NITROGEN 25 MG/DL (7-18); CARBON DIOXIDE LEVEL 25 MEQ/L (21-32); CHLORIDE LEVEL 110 MEQ/L (98-107); CREATININE FOR GFR 1.73 MG/DL (0.70-1.30); GLOMERULAR FILTRATION RATE 41.7 (>42); GLUCOSE, FASTING 225 MG/DL (70-100); POTASSIUM SERUM 4.3 MEQ/L (3.5-5.1); SODIUM LEVEL 142 MEQ/L (136-145); TOTAL PROTEIN 6.8 GM/DL (6.4-8.2)
[2022-06-15 19:57] LABS: VITAMIN B12 LEVEL 190 PG/ML (247-911)
[2022-06-15 19:58] LABS: FOLATE 5.2 NG/ML (>5.4)
[2022-06-21 13:16] LABS: ALBUMIN 3.44 GM/DL (3.29-5.55); ALBUMIN % 50.6 % (55.8-66.1); ALPHA-1-GLOBULIN % 3.8 % (2.9-4.9); ALPHA-1-GLOBULINS 0.26 GM/DL (0.17-0.41); ALPHA-2-GLOBULINS 0.89 GM/DL (0.42-0.99); ALPHA-2-GLOBULINS % 13.1 % (7.1-11.8); BETA-1-GLOBULINS 0.51 GM/DL (0.28-0.60); BETA-1-GLOBULINS % 7.5 % (4.7-7.2); BETA-2-GLOBULINS 0.48 GM/DL (0.19-0.55); GAMMA GLOBULINS 1.22 GM/DL (0.65-1.58)
[2022-06-22 18:07] LABS: CERULOPLASMIN 23.9 mg/dL (16.0-31.0); COPPER PLASMA 126 ug/dL (69-132); LEAD BLOOD ADULT <1 ug/dL (0-4); MERCURY LEVEL <1.0 ug/L (0.0-14.9); VITAMIN B1 LEVEL WHOLE BLOOD 129.3 nmol/L (66.5-200.0); VITAMIN B6,PYRIDOXAL PHOSPHATE 8.5 ug/L (3.4-65.2); VITAMIN E(ALPHA TOCOPHEROL) 6.4 mg/L (9.0-29.0); VITAMIN E(GAMMA TOCOPHEROL) 0.9 mg/L (0.5-4.9)
== END ==
LOC: M WUC 10:57
PROVIDERS: ATTEND Psychiatry & Neurology Neurology
DX: R25.1 Tremor, unspecified (principal); G62.9 Polyneuropathy, unspecified; Z79.899 Other long term (current) drug therapy

== ENCOUNTER → 2023-04-27 | Outpatient (CLI) | payer MEDICARE, BC, OTHER ==
[~2023-04-27] MED LIST changes: +TIMO0.5S20 OU; -TIMO0.5S29 OU
== END ==
LOC: M RAD 14:34
PROVIDERS: ATTEND Nurse Practitioner Family
DX: E11.22 Type 2 diabetes mellitus with diabetic chronic kidney disease (principal); I12.9 Hypertensive chronic kidney disease with stage 1 through stage 4 chronic kidney disease, or unspecified chronic kidney disease; N18.9 Chronic kidney disease, unspecified; R33.9 Retention of urine, unspecified

== ENCOUNTER 2023-07-19 12:29 | Emergency (ER) | payer MEDICARE, BC, OTHER ==
[~2023-07-19] VITALS: Ht 170.2 cm; Wt 120.5 kg
[2023-07-19 13:23] LABS: BASO % 0.5 % (0.0-1.0); EOS # 0.7 10^3/uL (0.0-0.5); EOS % 9.6 % (0.0-3.0); HEMATOCRIT 39.3 % (42.0-52.0); HEMOGLOBIN 12.3 g/dl (13.5-17.5); LYMPH % 26.8 % (24.0-44.0); MEAN CORPUSCULAR HEMOGLOBIN 23.6 pg (27.0-33.0); MEAN CORPUSCULAR HGB CONC 31.3 g/dl (32.0-36.5); MEAN CORPUSCULAR VOLUME 75.3 fl (80.0-96.0); MONO # 0.6 10^3/uL (0.0-0.8); MONO % 7.8 % (2.0-8.0); NEUTROPHILS # 4.2 10^3/uL (1.5-8.5); NEUTROPHILS % 54.9 % (36.0-66.0); PLATELET COUNT, AUTOMATED 240 10^3/uL (150-450); RED BLOOD COUNT 5.22 10^6/uL (4.30-6.10); WHITE BLOOD COUNT 7.6 10^3/uL (4.0-10.0)
[2023-07-19 13:51] LABS: CK-MB VALUE MASS 7.5 NG/ML (<3.6)
[2023-07-19 13:54] LABS: CALCIUM LEVEL 8.9 MG/DL (8.3-10.6); CREATININE FOR GFR 1.92 MG/DL (0.70-1.30); GLOMERULAR FILTRATION RATE 36.8 (>42); MB/CK RELATIVE INDEX 0.99 (< OR =4); POTASSIUM SERUM 4.2 MMOL/L (3.5-5.1)
[2023-07-19] MEDS ORDERED: ASPIRIN 81MG CHEW TABLET PO ONE (14:10)
[2023-07-19] MEDS ORDERED: NITROGLYCERIN 0.4MG SUBL TABLET SL PRN (14:10)
[2023-07-19 14:30] VITALS: BP 142/78
[2023-07-19 15:07] LABS: INR 1.08; PROTHROMBIN TIME 13.7 SECONDS (12.5-14.5)
[2023-07-19 15:08] LABS: PARTIAL THROMBOPLASTIN TIME 28.7 SECONDS (24.8-34.2)
[2023-07-19 15:10] LABS: CK-MB VALUE MASS 6.5 NG/ML (<3.6)
[2023-07-19 15:15] LABS: MB/CK RELATIVE INDEX 0.9 (< OR =4)
[2023-07-19 15:30] LABS: RSV AMPLIFICATION NEGATIVE (NEGATIVE)
[2023-07-19 16:07] VITALS: BP 143/65; TEMP 97.5; O2SAT 99
== END 2023-07-19 16:32 | disposition home or self-care (01) ==
LOC: M ED 12:29
DX: R07.9 Chest pain, unspecified (principal); R00.1 Bradycardia, unspecified; I25.2 Old myocardial infarction; E11.9 Type 2 diabetes mellitus without complications; I10 Essential (primary) hypertension; Z86.79 Personal history of other diseases of the circulatory system; Z87.891 Personal history of nicotine dependence; Z88.8 Allergy status to other drugs, medicaments and biological substances; Z79.52 Long term (current) use of systemic steroids; Z79.4 Long term (current) use of insulin; Z79.899 Other long term (current) drug therapy

== ENCOUNTER 2024-01-02 21:57 | Inpatient (IN) | payer MEDICARE, BC, OTHER ==
[~2024-01-02] VITALS: Ht 170.2 cm; Wt 122.7 kg
[2024-01-02] MEDS: IPRATROPIUM 0.5MG/ALBUTEROL 2.5MG INH SOL UD 3ML (DUONEB) NEB ONE (22:25)
[2024-01-02 22:37] LABS: VENOUS BASE EXCESS -0.2 (-2.0-2.0); VENOUS HCO3 26.2 MMOL/L (23.0-27.0); VENOUS O2 SATURATION 63.3 % (60.0-80.0); VENOUS PARTIAL PRESSURE CO2 50.1 mmHg (38.0-50.0); VENOUS PARTIAL PRESSURE O2 34.4 mmHg (30.0-50.0); VENOUS PH 7.337 UNITS (7.330-7.430); VENOUS STANDARD HCO3 23.6 MMOL/L; VENOUS TOTAL CO2 27.8 MMOL/L (24.0-28.0)
[2024-01-02 22:42] LABS: BASO % 0.3 % (0.0-1.0); EOS % 0.6 % (0.0-3.0); HEMATOCRIT 39.5 % (42.0-52.0); HEMOGLOBIN 12.1 g/dl (13.5-17.5); LYMPH # 1.5 10^3/uL (1.5-5.0); LYMPH % 22.5 % (24.0-44.0); MEAN CORPUSCULAR HEMOGLOBIN 22.6 pg (27.0-33.0); MEAN CORPUSCULAR HGB CONC 30.6 g/dl (32.0-36.5); MEAN CORPUSCULAR VOLUME 73.8 fl (80.0-96.0); MONO # 0.4 10^3/uL (0.0-0.8); MONO % 5.8 % (2.0-8.0); NEUTROPHILS # 4.7 10^3/uL (1.5-8.5); NEUTROPHILS % 70.7 % (36.0-66.0); PLATELET COUNT, AUTOMATED 201 10^3/uL (150-450); RED BLOOD COUNT 5.35 10^6/uL (4.30-6.10); WHITE BLOOD COUNT 6.7 10^3/uL (4.0-10.0)
[2024-01-02] MEDS: methylPREDNISolone 125MG 2ML VIAL IV ONE (22:51)
[2024-01-02 23:08] LABS: CK-MB VALUE MASS 2.4 NG/ML (<3.6)
[2024-01-02 23:10] LABS: ALBUMIN 3.4 G/DL (3.2-5.2); BILIRUBIN,DIRECT 0.2 MG/DL (<0.4); BILIRUBIN,TOTAL 0.4 MG/DL (0.3-1.2); CALCIUM LEVEL 7.8 MG/DL (8.3-10.6); CREATININE FOR GFR 1.98 MG/DL (0.70-1.30); GLOMERULAR FILTRATION RATE 35.5 (>42); MB/CK RELATIVE INDEX 0.33 (< OR =4); POTASSIUM SERUM 4.5 MMOL/L (3.5-5.1); TOTAL PROTEIN 6.9 G/DL (5.7-8.2)
[2024-01-02 23:17] LABS: PROCALCITONIN 0.09 ng/ml
[2024-01-02] MEDS: ACETAMINOPHEN TAB 650MG DOSE (2X325MG) PO ONE (23:48)
[2024-01-03] VITALS (7 sets, daily range): BP systolic 124–161; BP diastolic 55–68; TEMP 97.3–98.6; O2SAT 85–97
[2024-01-03 00:21] LABS: MB/CK RELATIVE INDEX 0.33 (< OR =4)
[2024-01-03] MEDS: IPRATROPIUM 0.5MG/ALBUTEROL 2.5MG INH SOL UD 3ML (DUONEB) NEB PRN (00:23)
[2024-01-03 00:58] LABS: VENOUS BASE EXCESS -2.3 (-2.0-2.0); VENOUS O2 SATURATION 94.6 % (60.0-80.0); VENOUS PARTIAL PRESSURE CO2 41.5 mmHg (38.0-50.0); VENOUS PARTIAL PRESSURE O2 75.4 mmHg (30.0-50.0); VENOUS PH 7.362 UNITS (7.330-7.430); VENOUS STANDARD HCO3 22.5 MMOL/L; VENOUS TOTAL CO2 24.3 MMOL/L (24.0-28.0)
[2024-01-03] MEDS ORDERED: VENTAER INH (01:02)
[2024-01-03] MEDS ORDERED: PRED20TA PO (01:02)
[2024-01-03 02:14] LABS: INR 1.19; PROTHROMBIN TIME 14.8 SECONDS (12.5-14.5)
[2024-01-03 02:15] LABS: PARTIAL THROMBOPLASTIN TIME 32.8 SECONDS (24.8-34.2)
[2024-01-03 02:18] LABS: D-DIMER QUANT 0.61 ug/mL (<0.5)
[2024-01-03] MEDS: IPRATROPIUM 0.5MG/ALBUTEROL 2.5MG INH SOL UD 3ML (DUONEB) NEB ONE (02:20)
[2024-01-03] MEDS ORDERED: GLUCAGON INJ 1MG VIAL SC PRN (03:45)
[2024-01-03] MEDS ORDERED: GLUCOSE 4GM CHEW TABLET PO PRN (03:45)
[2024-01-03] MEDS ORDERED: ALBUTEROL SULFATE 2.5MG/0.5ML INH NEB SOLN NEB PRN (03:45)
[2024-01-03] MEDS ORDERED: DEXTROSE 50% 50ML SYRINGE IV PRN (03:45)
[2024-01-03] MEDS: HumuLIN N INSULIN (NovoLIN N) PER UNIT SC SCH ×2 (03:58→21:14)
[2024-01-03] MEDS ORDERED: PREG300C2 PO (05:14)
[2024-01-03] MEDS ORDERED: ALBU8.5H INH (05:14)
[2024-01-03] MEDS ORDERED: INSU100I14 SQ ×2 (05:14)
[2024-01-03] MEDS ORDERED: DULA4.5P SQ (05:14)
[2024-01-03] MEDS ORDERED: ERGO500029 PO (05:14)
[2024-01-03] MEDS ORDERED: OXCA300T14 PO (05:14)
[2024-01-03] MEDS ORDERED: CALC250T PO (05:14)
[2024-01-03] MEDS ORDERED: HOME MED LIST COMPLETE! XX SCH (05:15)
[2024-01-03] MEDS: HEPARIN SOD (PORCINE) 5000UNITS/ML 1ML VIAL/SYRINGE SC SCH (05:29)
[2024-01-03] MEDS ORDERED: GLUC1KIT IM (05:29)
[2024-01-03] MEDS: methylPREDNISolone 125MG 2ML VIAL IV SCH (05:30)
[2024-01-03 06:48] LABS: CALCIUM LEVEL 8.1 MG/DL (8.3-10.6); CREATININE FOR GFR 1.98 MG/DL (0.70-1.30); GLOMERULAR FILTRATION RATE 35.5 (>42); POTASSIUM SERUM 4.6 MMOL/L (3.5-5.1)
[2024-01-03] MEDS: NS 1,000 ML IV SCH (06:48)
[2024-01-03 07:00] LABS: PHOSPHORUS LEVEL 4.4 MG/DL (2.4-5.1)
[2024-01-03] MEDS: IPRATROPIUM 0.5MG/ALBUTEROL 2.5MG INH SOL UD 3ML (DUONEB) NEB SCH (07:08)
[2024-01-03] MEDS: INSULIN LISPRO (NovoLOG) PER UNIT SC SCH ×2 (08:43→21:14)
[2024-01-03] MEDS: FAMOTIDINE 20 MG TAB PO SCH (08:43)
[2024-01-03] MEDS: ESCITALOPRAM OXALATE 10 MG TAB (LEXAPRO) PO SCH (08:43)
[2024-01-03] MEDS: CALCITRIOL 0.25 MCG CAP (S0169) PO SCH (08:43)
[2024-01-03 10:46] LABS: ERYTHROCYTE SEDIMENTATION RATE 82 mm/hr (0-20)
[2024-01-03] MEDS ORDERED: CALCIUM CARBONATE 500 MG CHEW U/D PO PRN (11:30)
[2024-01-03] MEDS: PREGABALIN 100 MG CAP (LYRICA) PO SCH (11:56)
[2024-01-03] MEDS: LR 1,000 ML IV SCH (15:58)
[2024-01-03] MEDS: TAMSULOSIN 0.4 MG CAP PO SCH (21:13)
[2024-01-03] MEDS: OXcarbazepine 300 MG TAB PO SCH (21:13)
[2024-01-03] MEDS: ACETAMINOPHEN TAB 650MG DOSE (2X325MG) PO PRN (21:26)
[2024-01-04] VITALS (8 sets, daily range): BP systolic 127–158; BP diastolic 54–72; TEMP 97.9–98.8; O2SAT 90–94
[2024-01-04] MEDS: ANEXSIA, NORCO 7.5MG/325MG TABLET(HYDROCODONE/APAP) PO PRN (05:30)
[2024-01-04 06:24] LABS: BASO % 0.1 % (0.0-1.0); HEMOGLOBIN 11.6 g/dl (13.5-17.5); LYMPH # 0.6 10^3/uL (1.5-5.0); LYMPH % 4.9 % (24.0-44.0); MEAN CORPUSCULAR HEMOGLOBIN 22.3 pg (27.0-33.0); MEAN CORPUSCULAR HGB CONC 30.5 g/dl (32.0-36.5); MEAN CORPUSCULAR VOLUME 72.9 fl (80.0-96.0); MONO # 0.4 10^3/uL (0.0-0.8); MONO % 2.7 % (2.0-8.0); NEUTROPHILS # 11.6 10^3/uL (1.5-8.5); NEUTROPHILS % 91.2 % (36.0-66.0); PLATELET COUNT, AUTOMATED 202 10^3/uL (150-450); RED BLOOD COUNT 5.21 10^6/uL (4.30-6.10); WHITE BLOOD COUNT 12.7 10^3/uL (4.0-10.0)
[2024-01-04 07:02] LABS: CALCIUM LEVEL 8.3 MG/DL (8.3-10.6); CREATININE FOR GFR 1.69 MG/DL (0.70-1.30); GLOMERULAR FILTRATION RATE 42.7 (>42); POTASSIUM SERUM 4.9 MMOL/L (3.5-5.1)
[2024-01-04] MEDS: DOXYCYCLINE HYCLATE 100MG TABLET PO SCH (08:54)
[2024-01-04] MEDS: CEPACOL LOZENGE PO PRN (11:42)
[2024-01-04] MEDS: LR 1,000 ML IV SCH (11:43)
[2024-01-05] VITALS (9 sets, daily range): BP systolic 125–167; BP diastolic 54–80; TEMP 97.7–98.2; O2SAT 86–93
[2024-01-05 06:45] LABS: BASO % 0.1 % (0.0-1.0); HEMATOCRIT 37.2 % (42.0-52.0); HEMOGLOBIN 11.5 g/dl (13.5-17.5); LYMPH # 1.3 10^3/uL (1.5-5.0); LYMPH % 11.2 % (24.0-44.0); MEAN CORPUSCULAR HEMOGLOBIN 22.6 pg (27.0-33.0); MEAN CORPUSCULAR HGB CONC 30.9 g/dl (32.0-36.5); MEAN CORPUSCULAR VOLUME 73.2 fl (80.0-96.0); MONO # 0.5 10^3/uL (0.0-0.8); MONO % 4.8 % (2.0-8.0); NEUTROPHILS # 9.4 10^3/uL (1.5-8.5); NEUTROPHILS % 83.2 % (36.0-66.0); PLATELET COUNT, AUTOMATED 210 10^3/uL (150-450); RED BLOOD COUNT 5.08 10^6/uL (4.30-6.10); WHITE BLOOD COUNT 11.3 10^3/uL (4.0-10.0)
[2024-01-05 07:13] LABS: CALCIUM LEVEL 8.2 MG/DL (8.3-10.6); CREATININE FOR GFR 1.54 MG/DL (0.70-1.30); GLOMERULAR FILTRATION RATE 47.5 (>42); POTASSIUM SERUM 4.5 MMOL/L (3.5-5.1)
[2024-01-05 09:14] LABS: PERCENT SATURATION 6.6 % (19.7-50.0)
[2024-01-05 09:16] LABS: FERRITIN 46.3 NG/ML (10.5-307.3); FOLATE 6.7 NG/ML (>5.4)
[2024-01-05] MEDS: predniSONE 20 MG TAB PO SCH (09:21)
[2024-01-05] MEDS: AUGMENTIN 875 MG TAB PO SCH (09:26)
[2024-01-05] MEDS: FERRIC CARBOXYMALTOSE INJ 750 MG, VIAL MATE ADAPTER 1 EACH in NS 250 ML IV ONE (13:53)
[2024-01-06 02:00] VITALS: BP 160/86; TEMP 97.9; O2SAT 91
[2024-01-06 05:43] LABS: HEMATOCRIT 40.5 % (42.0-52.0); HEMOGLOBIN 12.2 g/dl (13.5-17.5); MEAN CORPUSCULAR HEMOGLOBIN 22.1 pg (27.0-33.0); MEAN CORPUSCULAR HGB CONC 30.1 g/dl (32.0-36.5); MEAN CORPUSCULAR VOLUME 73.2 fl (80.0-96.0); PLATELET COUNT, AUTOMATED 218 10^3/uL (150-450); RED BLOOD COUNT 5.53 10^6/uL (4.30-6.10); WHITE BLOOD COUNT 7.2 10^3/uL (4.0-10.0)
[2024-01-06 06:00] VITALS: BP 124/69; TEMP 97.9; O2SAT 92
[2024-01-06 06:17] LABS: CALCIUM LEVEL 8.5 MG/DL (8.3-10.6); CREATININE FOR GFR 1.47 MG/DL (0.70-1.30); GLOMERULAR FILTRATION RATE 50.1 (>42); POTASSIUM SERUM 4.1 MMOL/L (3.5-5.1)
[2024-01-06 06:34] LABS: ATYPICAL LYMPH 8 % (0-5); LYMPHOCYTES 22 % (16-44); MONOCYTES 5 % (0-5); NEUTROPHILS 65 % (28-66)
[2024-01-06 06:35] LABS: ANISOCYTOSIS 2+; MICROCYTOSIS 2+; OVALOCYTES 1+
[2024-01-06 06:37] LABS: PLATELET ESTIMATE NORMAL (NORMAL)
[2024-01-06 07:45] VITALS: O2SAT 90
[2024-01-06 10:00] VITALS: BP 121/70; TEMP 97.7; O2SAT 91
[2024-01-06] MEDS ORDERED: INCR1INH INH (10:16)
[2024-01-06] MEDS ORDERED: AMOX875T2 PO (10:16)
[2024-01-06] MEDS ORDERED: PRED10TA2 PO (10:16)
[2024-01-06] MEDS ORDERED: FERR325T3 PO (10:22)
== END 2024-01-06 14:15 | disposition home or self-care (01) | DRG 190 ==
LOC: M ED 21:57 → M ED INP 01-03 03:45 → ENRESERV 01-03 03:58 → M MSPAV 01-03 04:45
PROVIDERS: ADMIT Internal Medicine; ATTEND Student in an Organized Health Care Education/Training Program
DX: J44.0 Chronic obstructive pulmonary disease with (acute) lower respiratory infection (principal); J12.9 Viral pneumonia, unspecified; M62.82 Rhabdomyolysis; I25.10 Atherosclerotic heart disease of native coronary artery without angina pectoris; G40.909 Epilepsy, unspecified, not intractable, without status epilepticus; E11.42 Type 2 diabetes mellitus with diabetic polyneuropathy; E11.22 Type 2 diabetes mellitus with diabetic chronic kidney disease; F32.A Depression, unspecified; N18.30 Chronic kidney disease, stage 3 unspecified; I12.9 Hypertensive chronic kidney disease with stage 1 through stage 4 chronic kidney disease, or unspecified chronic kidney disease; K21.9 Gastro-esophageal reflux disease without esophagitis; B34.8 Other viral infections of unspecified site; D50.9 Iron deficiency anemia, unspecified; Z79.4 Long term (current) use of insulin; Z88.8 Allergy status to other drugs, medicaments and biological substances; Z79.899 Other long term (current) drug therapy; E78.00 Pure hypercholesterolemia, unspecified; Z95.2 Presence of prosthetic heart valve

== ENCOUNTER → 2024-01-23 | Outpatient (CLI) | payer MEDICARE, BC, OTHER ==
[~2024-01-23] MED LIST changes: +ALBU8.5H INH; +AMOX875T2 PO; +CALC250T PO; +DULA4.5P SQ; +ERGO500029 PO; +FERR325T3 PO; +GLUC1KIT IM; +INCR1INH INH; +INSU100I14 SQ; +OXCA300T14 PO; +PRED10TA2 PO; +PREG300C2 PO; +VENTAER INH
[2024-01-23 17:12] LABS: BASO % 0.6 % (0.0-1.0); EOS # 0.2 10^3/uL (0.0-0.5); EOS % 3.1 % (0.0-3.0); HEMATOCRIT 41.9 % (42.0-52.0); HEMOGLOBIN 12.7 g/dl (13.5-17.5); LYMPH # 2.3 10^3/uL (1.5-5.0); LYMPH % 32.6 % (24.0-44.0); MEAN CORPUSCULAR HEMOGLOBIN 23.6 pg (27.0-33.0); MEAN CORPUSCULAR HGB CONC 30.3 g/dl (32.0-36.5); MEAN CORPUSCULAR VOLUME 77.7 fl (80.0-96.0); MONO # 0.7 10^3/uL (0.0-0.8); MONO % 9.6 % (2.0-8.0); NEUTROPHILS # 3.8 10^3/uL (1.5-8.5); NEUTROPHILS % 53.7 % (36.0-66.0); PLATELET COUNT, AUTOMATED 207 10^3/uL (150-450); RED BLOOD COUNT 5.39 10^6/uL (4.30-6.10)
[2024-01-23 17:27] LABS: HEMOGLOBIN A1c 8.1 % (4.0-6.0)
[2024-01-23 17:45] LABS: BILIRUBIN,TOTAL 0.6 MG/DL (0.3-1.2); CALCIUM LEVEL 8.4 MG/DL (8.3-10.6); CHOLESTEROL RISK RATIO 4.08 (<5); CREATININE FOR GFR 1.67 MG/DL (0.70-1.30); GLOMERULAR FILTRATION RATE 43.3 (>42); HDL CHOLESTEROL 31.3 MG/DL (>40); LDL CHOLESTEROL 57.1 MG/DL (<100); NON-HDL-C 96.7 MG/DL; TOTAL PROTEIN 6.3 G/DL (5.7-8.2)
== END ==
LOC: M WUC 11:31
PROVIDERS: ATTEND Internal Medicine
DX: J18.9 Pneumonia, unspecified organism (principal); E78.5 Hyperlipidemia, unspecified; E11.9 Type 2 diabetes mellitus without complications

== ENCOUNTER → 2024-02-22 | Outpatient (CLI) | payer MEDICARE, BC | LOC: M PAIN 13:00 | PROVIDERS: ATTEND Nurse Practitioner Family | DX: M96.1 Postlaminectomy syndrome, not elsewhere classified (principal); G89.29 Other chronic pain; E11.42 Type 2 diabetes mellitus with diabetic polyneuropathy; I10 Essential (primary) hypertension; F32.A Depression, unspecified; G47.30 Sleep apnea, unspecified; Z87.891 Personal history of nicotine dependence; Z79.82 Long term (current) use of aspirin; Z79.891 Long term (current) use of opiate analgesic; Z79.899 Other long term (current) drug therapy; Z88.8 Allergy status to other drugs, medicaments and biological substances ==

== ENCOUNTER → 2024-05-07 | Outpatient (CLI) | payer MEDICARE, BC ==
[2024-05-07 12:41] LABS: BASO % 0.4 % (0.0-1.0); EOS # 0.3 10^3/uL (0.0-0.5); EOS % 3.6 % (0.0-3.0); HEMATOCRIT 44.9 % (42.0-52.0); HEMOGLOBIN 14.4 g/dl (13.5-17.5); LYMPH # 2.3 10^3/uL (1.5-5.0); LYMPH % 32.4 % (24.0-44.0); MEAN CORPUSCULAR HEMOGLOBIN 27.4 pg (27.0-33.0); MEAN CORPUSCULAR HGB CONC 32.1 g/dl (32.0-36.5); MEAN CORPUSCULAR VOLUME 85.5 fl (80.0-96.0); MONO # 0.5 10^3/uL (0.0-0.8); MONO % 6.8 % (2.0-8.0); NEUTROPHILS # 3.9 10^3/uL (1.5-8.5); NEUTROPHILS % 56.5 % (36.0-66.0); PLATELET COUNT, AUTOMATED 170 10^3/uL (150-450); RED BLOOD COUNT 5.25 10^6/uL (4.30-6.10)
[2024-05-07 13:06] LABS: ALBUMIN 3.4 G/DL (3.2-5.2); BILIRUBIN,TOTAL 0.4 MG/DL (0.3-1.2); CHOLESTEROL RISK RATIO 2.56 (<5); CREATININE FOR GFR 1.43 MG/DL (0.70-1.30); GLOMERULAR FILTRATION RATE 51.6 (>42); HDL CHOLESTEROL 34.7 MG/DL (>40); LDL CHOLESTEROL 30.3 MG/DL (<100); NON-HDL-C 54.3 MG/DL; POTASSIUM SERUM 4.3 MMOL/L (3.5-5.1); TOTAL PROTEIN 6.4 G/DL (5.7-8.2)
[2024-05-07 13:36] LABS: HEMOGLOBIN A1c 7.2 % (4.0-6.0)
== END ==
LOC: M WUC 10:49
PROVIDERS: ATTEND Internal Medicine
DX: I25.10 Atherosclerotic heart disease of native coronary artery without angina pectoris (principal); E11.9 Type 2 diabetes mellitus without complications

== ENCOUNTER → 2024-05-21 | Outpatient (CLI) | payer MEDICARE, BC ==
[~2024-05-21] MED LIST changes: +ISOVUE-M 300 61% 15ML VIAL As Ordered ONE; +LIDOCAINE 1% SDV 30ML VIAL As Ordered ONE; +NORCO, ANEXSIA 5/325MG TABLET (HYDROcodone/ACETAMINOPHEN) As Ordered ONE; +dexAMETHasone 10MG/1ML VIAL PRES.FREE As Ordered ONE
== END ==
LOC: M PAIN 13:00
PROVIDERS: ATTEND Anesthesiology
DX: M96.1 Postlaminectomy syndrome, not elsewhere classified (principal); Z79.891 Long term (current) use of opiate analgesic; E11.9 Type 2 diabetes mellitus without complications; G47.30 Sleep apnea, unspecified; Z79.4 Long term (current) use of insulin; Z99.89 Dependence on other enabling machines and devices; Z79.02 Long term (current) use of antithrombotics/antiplatelets; Z79.899 Other long term (current) drug therapy; Z88.8 Allergy status to other drugs, medicaments and biological substances
CPT/HCPCS: 62323; J1100; Q9967

== ENCOUNTER → 2024-06-21 | Outpatient (CLI) | payer MEDICARE, BC ==
[~2024-06-21] MED LIST changes: -ISOVUE-M 300 61% 15ML VIAL As Ordered ONE; -LIDOCAINE 1% SDV 30ML VIAL As Ordered ONE; -NORCO, ANEXSIA 5/325MG TABLET (HYDROcodone/ACETAMINOPHEN) As Ordered ONE; -dexAMETHasone 10MG/1ML VIAL PRES.FREE As Ordered ONE
== END ==
LOC: M PAIN 11:00
PROVIDERS: ATTEND Nurse Practitioner Family
DX: M96.1 Postlaminectomy syndrome, not elsewhere classified (principal); G89.29 Other chronic pain; I10 Essential (primary) hypertension; E11.9 Type 2 diabetes mellitus without complications; F32.A Depression, unspecified; G47.30 Sleep apnea, unspecified; Z87.891 Personal history of nicotine dependence; Z79.82 Long term (current) use of aspirin; Z79.891 Long term (current) use of opiate analgesic; Z79.899 Other long term (current) drug therapy; Z88.8 Allergy status to other drugs, medicaments and biological substances

== ENCOUNTER → 2024-08-06 | Outpatient (CLI) | payer MEDICARE, BC ==
[2024-08-06 10:21] LABS: HEMOGLOBIN A1c 7.1 % (4.0-6.0)
[2024-08-06 10:31] LABS: ALBUMIN 3.5 G/DL (3.2-5.2); BILIRUBIN,TOTAL 0.5 MG/DL (0.3-1.2); CALCIUM LEVEL 9.7 MG/DL (8.3-10.6); CHOLESTEROL RISK RATIO 2.48 (<5); CREATININE FOR GFR 1.57 MG/DL (0.70-1.30); GLOMERULAR FILTRATION RATE 46.3 (>42); HDL CHOLESTEROL 39.5 MG/DL (>40); LDL CHOLESTEROL 26.7 MG/DL (<100); NON-HDL-C 58.5 MG/DL; TOTAL PROTEIN 6.9 G/DL (5.7-8.2)
== END ==
LOC: M WUC 08:54
PROVIDERS: ATTEND Internal Medicine
DX: E78.5 Hyperlipidemia, unspecified (principal); E11.9 Type 2 diabetes mellitus without complications

== ENCOUNTER → 2024-08-27 | Outpatient (CLI) | payer MEDICARE, BC ==
[~2024-08-27] MED LIST changes: +GABA-1172 PO; -GABA-282 PO; +ISOVUE-M 300 61% 15ML VIAL As Ordered ONE; +LIDOCAINE 1% SDV 30ML VIAL As Ordered ONE; +dexAMETHasone 10MG/1ML VIAL PRES.FREE As Ordered ONE
== END ==
LOC: M PAIN 15:00
PROVIDERS: ATTEND Anesthesiology
DX: M51.16 Intervertebral disc disorders with radiculopathy, lumbar region (principal); I10 Essential (primary) hypertension; E11.9 Type 2 diabetes mellitus without complications; F32.A Depression, unspecified; G47.30 Sleep apnea, unspecified; Z87.891 Personal history of nicotine dependence; Z79.4 Long term (current) use of insulin; Z79.82 Long term (current) use of aspirin; Z79.891 Long term (current) use of opiate analgesic; Z79.899 Other long term (current) drug therapy; Z88.8 Allergy status to other drugs, medicaments and biological substances
CPT/HCPCS: 64483; 64484; J0665; J1100; Q9967

== ENCOUNTER → 2024-11-26 | Outpatient (CLI) | payer MEDICARE, BC ==
[~2024-11-26] MED LIST changes: -ISOVUE-M 300 61% 15ML VIAL As Ordered ONE; -LIDOCAINE 1% SDV 30ML VIAL As Ordered ONE; -dexAMETHasone 10MG/1ML VIAL PRES.FREE As Ordered ONE
[2024-11-26 12:58] LABS: ALBUMIN 3.6 G/DL (3.2-5.2); BILIRUBIN,TOTAL 0.6 MG/DL (0.3-1.2); CALCIUM LEVEL 10.2 MG/DL (8.3-10.6); CHOLESTEROL RISK RATIO 3.19 (<5); CREATININE FOR GFR 1.69 MG/DL (0.70-1.30); GLOMERULAR FILTRATION RATE 42.6 (>42); HDL CHOLESTEROL 30.7 MG/DL (>40); LDL CHOLESTEROL 36.9 MG/DL (<100); NON-HDL-C 67.3 MG/DL; POTASSIUM SERUM 4.4 MMOL/L (3.5-5.1); TOTAL PROTEIN 7.1 G/DL (5.7-8.2)
[2024-11-26 13:07] LABS: HEMOGLOBIN A1c 7.2 % (4.0-6.0)
== END ==
LOC: M WUC 09:10
PROVIDERS: ATTEND Internal Medicine
DX: E78.5 Hyperlipidemia, unspecified (principal); E11.9 Type 2 diabetes mellitus without complications

== ENCOUNTER 2024-12-20 20:04 | Emergency (ER) | payer MEDICARE, BC ==
[~2024-12-20] VITALS: Ht 170.2 cm; Wt 90.0 kg
[2024-12-20 20:09] VITALS: BP 191/84; TEMP 98.6; O2SAT 95
[2024-12-21] MEDS ORDERED: DOXY-441 PO (16:06)
== END 2024-12-20 20:48 | disposition left against medical advice (07) ==
LOC: M ED 20:04
DX: Z53.21 Procedure and treatment not carried out due to patient leaving prior to being seen by health care provider (principal)

== ENCOUNTER 2024-12-21 12:01 | Emergency (ER) | payer MEDICARE, BC ==
[~2024-12-21] VITALS: Ht 170.2 cm; Wt 118.7 kg
[2024-12-21 12:05] VITALS: BP 143/66; TEMP 97.9; O2SAT 96
[2024-12-21 12:59] LABS: BASO % 0.4 % (0.0-1.0); EOS # 0.6 10^3/uL (0.0-0.5); EOS % 5.8 % (0.0-3.0); HEMATOCRIT 46.7 % (42.0-52.0); HEMOGLOBIN 15.2 g/dl (13.5-17.5); LYMPH # 1.9 10^3/uL (1.5-5.0); LYMPH % 20.3 % (24.0-44.0); MEAN CORPUSCULAR HGB CONC 32.5 g/dl (32.0-36.5); MONO # 0.8 10^3/uL (0.0-0.8); MONO % 8.1 % (2.0-8.0); NEUTROPHILS # 6.2 10^3/uL (1.5-8.5); NEUTROPHILS % 65.1 % (36.0-66.0); PLATELET COUNT, AUTOMATED 201 10^3/uL (150-450); RED BLOOD COUNT 5.43 10^6/uL (4.30-6.10); WHITE BLOOD COUNT 9.5 10^3/uL (4.0-10.0)
[2024-12-21 13:04] LABS: ERYTHROCYTE SEDIMENTATION RATE 45 mm/hr (0-20)
[2024-12-21 13:24] LABS: ALBUMIN 3.4 G/DL (3.2-5.2); BILIRUBIN,DIRECT 0.4 MG/DL (<0.4); BILIRUBIN,TOTAL 0.9 MG/DL (0.3-1.2); C REACTIVE PROTEIN QUANTITATIV 3.66 MG/DL (<1.0); CALCIUM LEVEL 9.2 MG/DL (8.3-10.6); CREATININE FOR GFR 1.84 MG/DL (0.70-1.30); GLOMERULAR FILTRATION RATE 38.6 (>42); POTASSIUM SERUM 4.6 MMOL/L (3.5-5.1)
[2024-12-21 13:31] LABS: PROCALCITONIN 0.07 ng/ml
[2024-12-21] MEDS: LIDOCAINE W/EPINEPHRINE 1% 20ML VIAL SC ONE (15:05)
[2024-12-21] MEDS ORDERED: DOXY-441 PO (16:06)
== END 2024-12-21 16:52 | disposition home or self-care (01) ==
LOC: M ED 12:01
DX: L02.211 Cutaneous abscess of abdominal wall (principal); I25.2 Old myocardial infarction; E11.9 Type 2 diabetes mellitus without complications; I10 Essential (primary) hypertension; N18.30 Chronic kidney disease, stage 3 unspecified; Z98.84 Bariatric surgery status; Z86.79 Personal history of other diseases of the circulatory system; Z88.8 Allergy status to other drugs, medicaments and biological substances; Z79.52 Long term (current) use of systemic steroids; Z79.02 Long term (current) use of antithrombotics/antiplatelets; Z79.2 Long term (current) use of antibiotics; Z79.4 Long term (current) use of insulin; Z79.899 Other long term (current) drug therapy

== ENCOUNTER → 2025-02-24 | Outpatient (CLI) | payer MEDICARE, BC, OTHER ==
[~2025-02-24] MED LIST changes: +DOXY-441 PO
[2025-02-24 13:54] LABS: HEMOGLOBIN A1c 7.2 % (4.0-6.0)
[2025-02-24 14:07] LABS: ALBUMIN 3.4 G/DL (3.2-5.2); BILIRUBIN,TOTAL 0.5 MG/DL (0.3-1.2); CALCIUM LEVEL 9.1 MG/DL (8.3-10.6); CHOLESTEROL RISK RATIO 3.16 (<5); CREATININE FOR GFR 1.61 MG/DL (0.70-1.30); GLOMERULAR FILTRATION RATE 44.9 (>42); HDL CHOLESTEROL 31.6 MG/DL (>40); LDL CHOLESTEROL 33.2 MG/DL (<100); NON-HDL-C 68.4 MG/DL; POTASSIUM SERUM 4.4 MMOL/L (3.5-5.1); TOTAL PROTEIN 6.9 G/DL (5.7-8.2)
== END ==
LOC: M WUC 09:24
PROVIDERS: ATTEND Internal Medicine
DX: E78.5 Hyperlipidemia, unspecified (principal); E11.9 Type 2 diabetes mellitus without complications

== ENCOUNTER → 2025-09-01 | Outpatient (CLI) | payer MEDICARE, BC ==
[~2025-09-01] MED LIST changes: -FENO1TAB41 PO; +FENO40TA4 PO; -FLOM0.4C39 PO; -GLUC1KIT IM; +GLUC1VIA14 IM; +PREG-35 PO; -PREG100CA PO; +TAMS-18 PO
[2025-09-01 14:45] LABS: BASO # 0.0 10^3/uL (0.0-0.2); BASO % 0.4 % (0.0-1.0); EOS # 0.2 10^3/uL (0.0-0.5); EOS % 2.9 % (0.0-3.0); LYMPH # 2.4 10^3/uL (1.5-5.0); LYMPH % 32.6 % (24.0-44.0); MONO # 0.6 10^3/uL (0.0-0.8); MONO % 8.2 % (2.0-8.0); NEUTROPHILS # 4.1 10^3/uL (1.5-8.5); NEUTROPHILS % 55.6 % (36.0-66.0); PLATELET COUNT, AUTOMATED 229 10^3/uL (150-450)
[2025-09-01 14:51] LABS: ALT/SGPT 28.0 U/L (7.0-40); AST/SGOT 39.0 U/L (<34); CALCIUM LEVEL 9.1 MG/DL (8.3-10.6); CARBON DIOXIDE LEVEL 29.0 MMOL/L (20-31); CHLORIDE LEVEL 105.0 MMOL/L (98-107); CHOLESTEROL LEVEL 90.0 MG/DL (<200); CHOLESTEROL RISK RATIO 2.58 (<5); CREATININE FOR GFR 1.48 MG/DL (0.70-1.30); GLOMERULAR FILTRATION RATE 49.3 (>42); LDL CHOLESTEROL 32.8 MG/DL (<100); NON-HDL-C 55.2 MG/DL; POTASSIUM SERUM 4.1 MMOL/L (3.5-5.1); SODIUM LEVEL 143.0 MMOL/L (136-145); TRIGLYCERIDES LEVEL 112.0 MG/DL (<150)
[2025-09-01 16:11] LABS: ESTIMATED AVERAGE GLUCOSE 163.0 MG/DL (60-110)
== END ==
LOC: M WUC 11:22
PROVIDERS: ATTEND Internal Medicine
DX: I25.10 Atherosclerotic heart disease of native coronary artery without angina pectoris (principal); E78.5 Hyperlipidemia, unspecified; E11.9 Type 2 diabetes mellitus without complications

== ENCOUNTER 2025-11-25 15:24 | Inpatient (IN) | payer MEDICARE, BC ==
[~2025-11-25] VITALS: Ht 170.2 cm; Wt 117.2 kg
[2025-11-25 16:03] LABS: BASO # 0.0 10^3/uL (0.0-0.2); BASO % 0.2 % (0.0-1.0); EOS # 0.1 10^3/uL (0.0-0.5); EOS % 0.9 % (0.0-3.0); LYMPH # 1.4 10^3/uL (1.5-5.0); LYMPH % 11.7 % (24.0-44.0); MONO # 0.8 10^3/uL (0.0-0.8); MONO % 7.0 % (2.0-8.0); NEUTROPHILS # 9.3 10^3/uL (1.5-8.5); NEUTROPHILS % 79.9 % (36.0-66.0); PLATELET COUNT, AUTOMATED 221 10^3/uL (150-450)
[2025-11-25 16:26] LABS: CPK CREATINE PHOSPHOKINASE 307.0 U/L (46-171)
[2025-11-25 16:27] LABS: ALT/SGPT 55.0 U/L (7.0-40); AST/SGOT 68.0 U/L (<34); CALCIUM LEVEL 9.2 MG/DL (8.3-10.6); CARBON DIOXIDE LEVEL 28.0 MMOL/L (20-31); CHLORIDE LEVEL 105.0 MMOL/L (98-107); CK-MB VALUE MASS 6.8 NG/ML (<3.6); CREATININE FOR GFR 1.42 MG/DL (0.70-1.30); GLOMERULAR FILTRATION RATE 51.9 (>42); MB/CK RELATIVE INDEX 2.21 (< OR =4); POTASSIUM SERUM 3.8 MMOL/L (3.5-5.1); SODIUM LEVEL 143.0 MMOL/L (136-145)
[2025-11-25 16:31] LABS: FREE T4 0.88 NG/DL (0.89-1.76)
[2025-11-25 16:49] LABS: AMPHETAMINES LEVEL URINE NEGATIVE (NEGATIVE)
[2025-11-25 16:50] LABS: BARBITURATES URINE NEGATIVE (NEGATIVE); BENZODIAZEPINES URINE NEGATIVE (NEGATIVE); CANNABINOIDS URINE NEGATIVE (NEGATIVE); COCAINE METABOLITE URINE NEGATIVE (NEGATIVE); METHADONE URINE NEGATIVE (NEGATIVE); OPIATES URINE NEGATIVE (NEGATIVE); PHENCYCLIDINE URINE NEGATIVE (NEGATIVE)
[2025-11-25] MEDS ORDERED: ISOVUE-370 76% 100 ML VIAL As Ordered ONE (17:05)
[2025-11-25 17:49] LABS: CK-MB VALUE MASS 5.7 NG/ML (<3.6)
[2025-11-25 17:50] LABS: CPK CREATINE PHOSPHOKINASE 292.0 U/L (46-171); MB/CK RELATIVE INDEX 1.95 (< OR =4)
[2025-11-25] MEDS: cefTRIAXone SOD 1 GM in DEXTROSE 5% (D5W) ADV/MINI-BAG 50 ML IV ONE (19:52)
[2025-11-25] MEDS: AZITHROMYCIN 250 MG TABLET PO ONE (19:52)
[2025-11-25] MEDS ORDERED: MOM 30 ML SUSPENSION UDC PO PRN (20:20)
[2025-11-25] MEDS ORDERED: DEXTROSE 50% 50 ML SYRINGE IV PRN (20:20)
[2025-11-25] MEDS ORDERED: MAALOX 30 ML SUSP *UDC PO PRN (20:20)
[2025-11-25] MEDS ORDERED: GLUCOSE 4 GM CHEW PO PRN (20:20)
[2025-11-25] MEDS ORDERED: GLUCAGON INJ 1 MG VIAL SC PRN (20:20)
[2025-11-25] MEDS ORDERED: SEMA2PEN SQ (20:30)
[2025-11-25] MEDS ORDERED: ISOS1TAB35 PO (20:30)
[2025-11-25] MEDS ORDERED: IPRATROPIUM 0.5 MG/ALBUTEROL 2.5 MG INH SOL UD 3 ML NEB PRN (20:30)
[2025-11-25] MEDS ORDERED: TAMS1CAP17 PO (20:30)
[2025-11-25] MEDS ORDERED: guaiFENesin DM LIQ 10ML UD PO PRN (20:30)
[2025-11-25] MEDS ORDERED: HOME MED LIST COMPLETE! XX SCH (20:35)
[2025-11-25] MEDS: INSULIN LISPRO (NovoLOG) PER UNIT SC SCH (21:00)
[2025-11-25] MEDS: ESCITALOPRAM OXALATE 10 MG TABLET PO SCH (23:16)
[2025-11-25] MEDS: TAMSULOSIN 0.4 MG CAP PO SCH (23:16)
[2025-11-25] MEDS: FAMOTIDINE 20 MG TAB PO SCH (23:16)
[2025-11-26] MEDS: ACETAMINOPHEN 325 MG TAB PO PRN (01:44)
[2025-11-26] MEDS: ISOSORBIDE MONONITRATE 30 MG XR TAB PO SCH (07:45)
[2025-11-26] MEDS: ATORVASTATIN 20 MG TAB PO SCH (07:45)
[2025-11-26] MEDS: HEPARIN SOD 5000 UNITS/ML 1 ML VIAL/SYRINGE SC SCH (07:46)
[2025-11-26] MEDS: INSULIN LISPRO (NovoLOG) PER UNIT SC SCH (07:46)
[2025-11-26 08:05] LABS: PLATELET COUNT, AUTOMATED 172 10^3/uL (150-450)
[2025-11-26 09:07] LABS: ALT/SGPT 40.0 U/L (7.0-40); AST/SGOT 46.0 U/L (<34); CALCIUM LEVEL 8.7 MG/DL (8.3-10.6); CARBON DIOXIDE LEVEL 28.0 MMOL/L (20-31); CHLORIDE LEVEL 103.0 MMOL/L (98-107); CREATININE FOR GFR 1.77 MG/DL (0.70-1.30); GLOMERULAR FILTRATION RATE 39.8 (>42); MAGNESIUM LEVEL 1.8 MG/DL (1.8-2.4); POTASSIUM SERUM 4.0 MMOL/L (3.5-5.1); SODIUM LEVEL 140.0 MMOL/L (136-145)
[2025-11-26 10:39] VITALS: BP 111/53
[2025-11-26] MEDS: PREGABALIN 100 MG CAP PO SCH (10:39)
[2025-11-26] MEDS: predniSONE 20 MG TAB PO SCH (10:39)
[2025-11-26] MEDS: CHLORTHALIDONE 12.5 MG PER 1/2 TABLET PO SCH (10:39)
[2025-11-26] MEDS ORDERED: CEFD1CAP9 PO (12:57)
[2025-11-26] MEDS ORDERED: PRED20TA PO (12:57)
[2025-11-26] MEDS ORDERED: AZIT-12 PO (12:57)
[2025-11-26] MEDS ORDERED: VENTAER INH (12:57)
[2025-11-26 14:29] VITALS: BP 121/61; TEMP 97.3; O2SAT 94
[2025-11-26] MEDS ORDERED: AZITHROMYCIN 250 MG TABLET PO SCH (18:00)
[2025-11-26] MEDS ORDERED: cefTRIAXone SOD 1 GM in DEXTROSE 5% (D5W) ADV/MINI-BAG 50 ML IV SCH (20:00)
[2025-11-26] MEDS ORDERED: HumuLIN N INSULIN (NovoLIN N) PER UNIT SC SCH (21:00)
[2025-11-27] MEDS ORDERED: HumuLIN N INSULIN (NovoLIN N) PER UNIT SC SCH (07:30)
== END 2025-11-26 14:33 | disposition home or self-care (01) | DRG 194 ==
LOC: M ED 15:24 → M ED INP 20:18
PROVIDERS: ADMIT Student in an Organized Health Care Education/Training Program; ATTEND Internal Medicine
DX: J18.9 Pneumonia, unspecified organism (principal); J44.0 Chronic obstructive pulmonary disease with (acute) lower respiratory infection; K21.9 Gastro-esophageal reflux disease without esophagitis; E11.22 Type 2 diabetes mellitus with diabetic chronic kidney disease; I12.9 Hypertensive chronic kidney disease with stage 1 through stage 4 chronic kidney disease, or unspecified chronic kidney disease; E78.5 Hyperlipidemia, unspecified; N18.30 Chronic kidney disease, stage 3 unspecified; N40.0 Benign prostatic hyperplasia without lower urinary tract symptoms; J69.0 Pneumonitis due to inhalation of food and vomit; I25.10 Atherosclerotic heart disease of native coronary artery without angina pectoris; Z98.84 Bariatric surgery status; E11.649 Type 2 diabetes mellitus with hypoglycemia without coma; G40.909 Epilepsy, unspecified, not intractable, without status epilepticus; Z88.8 Allergy status to other drugs, medicaments and biological substances; Z79.899 Other long term (current) drug therapy